=== PATIENT | male | born 1930 | race Caucasian/White ===

== ENCOUNTER → 2016-10-09 | Day surgery (SDC) | payer BC ==
[2016-09-26 10:36] VITALS: Ht 177.8 cm; Wt 86.4 kg
[~2016-10-09] VITALS: Ht 177.8 cm; Wt 86.4 kg
[~2016-10-09] MED LIST: 500ML BSS 0.3ML EPI 1:1000PF IRRIG ONE; ACETAMINOPHEN 325 MG TAB PO PRN; ALBUAER2 INH; AMVISC PLUS 0.8ML SYRINGE INT OCU ONE; ASPI-435 PO; ATROPINE SULFATE 0.1 MG/ML 5ML SYR IV PRN; ATV/1 PO; BSS FLUSH ONE; CHOL100010 PO; ENDOCOAT 0.85ML SYRINGE INT OCU ONE; EpHEDrine SULFATE INJ 50 MG/ML AMP IV PRN; EpINEphrine INJ 1MG/ML AMP 1 MG/ML AMP ONE; FLUO0.05 TOP; FLUO5OIL OT; GUAI1TAB55 PO; HYDR-4956 EXT; IPRA0.037 NAE; LACTATED RINGER'S 1000ML 500 ML IV SCH; LIDOCAINE 4% OP SOLN DROP CHARGE ONE; LIDOCAINE 4% OP SOLN DROP CHARGE OPR SCH; LIDOCAINE HCL 1% MPF 2 ML VIAL ONE; MIDAZOLAM HCL 1 MG/ML 2ML VIAL ONE; MIX: 4ML BSS 1ML EPI 1:1000 PF TOP ONE; MOXIFLOXACIN OPH SOLN PER DROP CHARGE ONE; MULT-188 PO; POVIDONE-IODINE OP SOLN 30 ML BTL ONE; PROPARACAINE 0.5% OP SOLN PER DROP CHARGE OPR SCH; TIOTCAP INH; TOBRAMYCIN/DEXAMETHASONE OPH OINT PER APPLN CHARGE ONE; TRAZ50TA35 PO
[2016-10-09] MEDS: PHENYLEPHRINE HCL 2.5% OP SOLN PER DROP CHARGE OPR SCH ×3 (07:30→07:40)
[2016-10-09] MEDS: TROPICAMIDE 1% OP SOLN PER DROP CHARGE OPR SCH ×3 (07:31→07:41)
[2016-10-09] MEDS: CYCLOPENTOLATE HCL 1% OP SOLN PER DROP CHARGE OPR SCH ×3 (07:32→07:42)
[2016-10-09] MEDS: MOXIFLOXACIN OPH SOLN PER DROP CHARGE OPR SCH ×3 (07:33→07:43)
--- NOTE | 2016-10-09 07:34 | History & Physical Bridge - SC ---
H&P Re-Evaluation Bridge Note: I have examined the patient, reviewed the History & Physical and in the interval since the performance of the History & Physical I have noted the following changes of clinical significance: No changes noted. Right eye cataract surgery.
--- NOTE | 2016-10-09 08:53 | [facility] Post Operative Brief Note ---
Immediate Operative Summary Operative Date October 09, 2016. Pre-Operative Diagnosis Right eye cataract Post-Operative Diagnosis Same as preop Procedure(s) Performed Right Cataract Phacoemulsification With Intraocular Lens Implant Surgeon Dr. Sainz Contact Centre Supervisor Surgeon(s) None Estimated Blood Loss 0 mL Findings right cataract Specimens None Complication(s) None Disposition
--- NOTE | 2016-10-09 08:54 | [facility] Operative Report ---
Operative Report Date of Service October 09, 2016. Operative Report Phaco with monofocal IOL DATE OF OPERATION: 10/09/16 PREOPERATIVE DIAGNOSIS: Senile nuclear cataract, right eye POSTOPERATIVE DIAGNOSIS: Senile nuclear cataract, right eye PROCEDURE PERFORMED: Phacoemulsification with intraocular lens implantation, right eye SURGEON: Dr. Yair Sainz ANESTHESIA: Topical with 1% intracameral lidocaine and monitored anesthesia care COMPLICATIONS: None DESCRIPTION OF PROCEDURE: After positively identifying the patient both verbally and by wristband in the preoperative area, the right eye was marked as the operative eye. The patient was then brought back to the operating room by the anesthesia and nursing staff where they were given a drop of Lidocaine and betadine into the operative eye. They were then sterilely prepped and draped in the standard fashion typical for ophthalmic surgery. Steri-strips were placed along the upper eyelids to keep the lashes back, and a lid speculum was placed into the operative eye. At this point, a documented time out was performed with members of the ophthalmology, nursing, and anesthesia staffs all agreeing upon the correct patient, correct location for surgery, correct procedure, and correct type and power of intraocular lens to be implanted. The microscope was then swung into position. First, a paracentesis wound was made using a sideport blade. Then, in sequence, 1% preservative-free lidocaine followed by Endocoat viscoelastic was injected into the anterior chamber. Next , the main incision was made with a keratome blade in triplanar fashion. A sharp cystotome was introduced into the eye and used to create a tear in the anterior capsule, which was directed into a continuous curvilinear capsulorrhexis using Utrata forceps. Hydrodissection was then performed with BSS on a flat-tip cannula. Next, the phacoemulsification handpiece was introduced into the eye and used to remove the nucleus in a [id number] fashion. This was done without complication and then the irrigation-aspiration handpiece was introduced into the eye and used to remove all remaining cortical and epinuclear material. Amvisc was then injected into the anterior chamber as well as into the capsular bag and using the lens injector system, an MX60 18.5 D lens, serial number [id number], and expiration date 03/2019 was injected into the capsular bag and rotated into the correct position. Next, the irrigation- aspiration handpiece was used to remove all remaining Amvisc. BSS was used to hydrate the main wound, and then BSS was injected into the paracentesis site to reach physiologic pressure and then the main wound was checked and found to be watertight. The patient was given drops of Vigamox and Tobradex ointment into the operative eye, and then the surrounding area was cleaned and dried. A clear plastic shield was placed over the eye and the patient was then sat up and taken from the operating room by the anesthesia staff having tolerated the procedure well and suffering no complications. DISPOSITION: The patient was returned to the recovery room in stable condition. I attest to the content of the Intraoperative Record and any orders documented therein. Any exceptions are noted below.
--- NOTE | 2016-10-09 08:55 | Discharge Instructions-SurgCtr ---
Discharge Instructions Date of Service October 09, 2016. Visit Reason for Visit: Cataract Right Eye Discharge Discharge Diagnosis / Problem: right cataract Discharge Goals Goal(s): Decrease discomfort, Improve function Activity Recommendations Activity Limitations: as noted below Anesthesia . Post Anesthesia Instructions: If you have had General Anesthesia or IV Sedation: * Do not drive today. * Resume driving when surgeon permits. * Do not make important decisions or sign legal documents today. * Call surgeon for: 1. Temperature elevations greater than 101 degrees F. 2. Uncontrollable pain. 3. Excessive bleeding. 4. Persistent nausea and vomiting. 5. Medication intolerance (nausea, vomiting or rash). * For nausea and vomiting use only clear liquids such as: tea, soda, bouillon until nausea subsides, then gradually increase diet as tolerated. * If you have any concerns or questions, call your surgeon's office. If physician is unavailable and it is an emergency, call 911 or go to the nearest emergency room. . Instructions / Follow-Up Instructions / Follow-Up ACTIVITY RECOMMENDATIONS: * Light activities. * You may walk outside, read, watch television. * You may notice redness on the white part of the eye and some blurry vision - this is normal. MEDICATIONS: Resume previous medications unless instructed otherwise by your surgeon. Start all eye drops at 11 am today: * Eye drops (today): Prednisone - one drop in operative eye every 2 hours while awake Ciprofloxacin - one drop in operative eye every 2 hours while awake Ilevro - one drop in operative eye daily SPECIAL CARE INSTRUCTIONS: * Tape plastic shield over eye to sleep at night. Call your doctor at with any concerns or problems. FOLLOW UP VISIT: Follow-up with Dr Sainz at [place] office as scheduled. Diet Recommendations Home Diet: no limitations Procedures Procedures Performed: Right Cataract Phacoemulsification With Intraocular Lens Implant Pending Studies Studies pending at discharge: no Medical Emergencies . Who to Call and When: Medical Emergencies: If at any time you feel your situation is an emergency, please call 911 immediately. . Non-Emergent Contact Non-Emergency issues call your: Surgeon . . "Provider Documentation" section prepared by Yair Sainz. .
[2016-10-09 08:57] VITALS: TEMP 36.9
[2016-10-09 09:16] VITALS: BP 127/75; PULSE 77; O2SAT 94
--- NOTE | 2016-10-09 09:22 | Anesthesia Progress Nt - [facility] ---
Anesthesia Post Op Note Date & Time October 09, 2016 at 09:22 Vital Signs Pain Intensity: 0 Vital Signs Past 12 Hours Date Time Temp Pulse Resp B/P Pulse Ox O2 Delivery O2 Flow Rate FiO2 10/09/16 09:16 77 127/75 94 Room Air 10/09/16 08:57 36.9 82 24 105/68 97 Room Air 10/09/16 07:21 36.7 82 20 116/68 95 Room Air Notes Mental Status: alert / awake / arousable, participated in evaluation Pt Amnestic to Procedure: Yes Nausea / Vomiting: adequately controlled Pain: adequately controlled Airway Patency, RR, SpO2: stable & adequate BP & HR: stable & adequate Hydration State: stable & adequate Anesthetic Complications: no major complications apparent
== END | disposition home or self-care (01) ==
LOC: X.SURG 06:41
PROVIDERS: ATTEND Ophthalmology
DX: H25.11 Age-related nuclear cataract, right eye (principal); J44.9 Chronic obstructive pulmonary disease, unspecified; F32.9 Major depressive disorder, single episode, unspecified; H91.90 Unspecified hearing loss, unspecified ear

== ENCOUNTER 2020-05-12 14:27 | Inpatient (IN) ==
--- NOTE | 2020-05-12 18:15 | Emergency Department Note ---
Impression & Plan SOB (shortness of breath), Productive cough, Pneumonitis ED Provider Note INFORMANT: [Patient] ED PROVIDER(S): Jsor Jones MD CHIEF COMPLAINT: Shortness of breath PLAN: Disposition: Admitted Condition: [Good] MEDICAL DECISION MAKING: Patient presented complaining of shortness of breath and cough. X-ray imaging reveals a pneumonitis. His blood work shows a mild leukocytosis. Coags were unremarkable. Chemistry panel did show some mild dehydration. His BNP was borderline. Troponin and LFTs were negative. The patient was given Rocephin and doxycycline after cultures. Covid testing was negative. ECG did not show any ischemia. I discussed further management in the hospital. The patient had a consultation placed with the [facility] service. The patient was valuated in the ER for further management Triage Nursing notes reviewed and agree them. Vital Signs: reviewed and remarkable for [no significant abnormalities] Differential diagnosis: Reactive airway disease, pneumonia, pneumothorax, COPD, CHF, infections, cardiac ischemia, pulmonary embolism, musculoskeletal, gastrointestinal, as well as other pathologies. Diagnostics interpreted by me: ECG: Twelve-lead ECG reveals A. fib at 80 bpm with competing junctional pacer. PVCs noted. No ST elevation or depression. Cardiac Monitoring: Cardiac monitoring ordered by me: The patient was placed on continuous cardiac monitoring and observed. It revealed atrial fibrillation at 80 beats per minute without ectopy or evidence of dysrhythmia. Imaging studies: Chest x-ray reveals findings concerning for pneumonitis Consultation(s): [facility], Dr. Palomo HPI: The patient is a 89 year old male who presents to the Emergency Room with complaints of shortness of breath. This started a few weeks ago and is worsening. The patient also notes the following associated symptoms, productive cough of sputum. The patient has found now relieving factors. Current pain is rated as 0/10. Patient states he has no appetite or energy. He contacted his primary office and was directed to the ER for further evaluation and possible admission. pt denies LOC, headache, fevers, chills, diaphoresis, visual changes, neck pain, chest pain, nausea, vomiting, abdominal pain, back pain, melena, hematochezia, urinary symptoms, numbness, focal weakness, lymphadenopathy, rash, or other complaints. ROS: See above HPI for pertinent positives & negatives. A total of [10] systems reviewed and were otherwise negative. PAST MEDICAL HISTORY:[See Below] , COPD PAST SURGICAL HISTORY:[See Below], rectal surgery FAMILY HISTORY:[See Below] SOCIAL HISTORY:[See Below], lives alone HOME MEDICATIONS:[See Below] ALLERGIES:[See Below] VITALS:[See Below] PHYSICAL EXAMINATION: GENERAL: Awake, alert, gaunt-appearing, in no distress HENT: Normocephalic, atraumatic. Oropharynx unremarkable. EYES: Normal conjunctiva. Sclera non-icteric. NECK: Inspection normal. Non-tender. Supple. No nuchal rigidity. FROM. No masses. RESPIRATORY: Scattered rhonchi otherwise clear to auscultation. No wheezes. No rales. Wet sounding cough present. Increased respiratory effort. CARDIAC: Normal rate. Irregular rhythm. No murmurs. No rubs. Extremities warm and well perfused. Pulses equal. No JVD. GI: Soft, non-distended. No tenderness to palpation. No rebound or guarding. No masses. RECTAL: Deferred. MUSCULOSKELETAL: Atraumatic but generalized atrophy. Chest examination reveals no tenderness. The back is symmetrical on inspection without obvious abnormality. There is no CVA tenderness to palpation. No joint edema. LOWER EXTREMITIES: Calves are equal size bilaterally and non-tender. No edema. No discoloration. NEURO: Normal sensorium. No sensory or motor deficits noted. SKIN: No rash or jaundice noted. Josr Jones MD Past Med/Surg History Social History Smoking Status: Former smoker Feels Safe at Home: Yes Allergies Allergies Allergy/AdvReac Type Severity Reaction Status Date / Time No Known Allergies Allergy Verified 05/05/20 15:02 Home Meds Home Medications Medication Instructions Recorded Confirmed cholecalciferol (vitamin D3) 50 2,000 units PO DAILY tab 11/30/19 05/12/20 mcg (2,000 unit) tablet lorazepam 1 mg tablet 1 mg PO BID PRN tab 11/30/19 05/12/20 betamethasone, augmented 1 applic TOPICAL 3XWK PRN 05/05/20 05/12/20 vitamin A-vitamin C-vit E-min 1 tab PO QAM 05/05/20 05/12/20 [Ocuvite] Results & Data (ED) Vital Signs Vital Signs - 24 hr 05/12/20 14:35 05/12/20 17:01 05/12/20 18:15 Temperature 36.3 C L Temperature Source Temporal Artery Scan Pulse Rate 105 H 88 80 Pulse Rate [Apical] Pulse Rate from SpO2 Sensor Pulse Rhythm Irregular Pulse Rhythm [Apical] Pulse Strength [Apical] Respiratory Rate 18 30 H 20 Respiratory Effort / Characteristics Non-Labored Respiratory Depth Normal Respiratory Pattern Blood Pressure 135/75 128/83 Blood Pressure [Left Arm] Blood Pressure Mean 95 96 Blood Pressure Mean [Left Arm] Blood Pressure Position [Left Arm] Pulse Oximetry 100 100 Oxygen Delivery Method Room Air Nasal Cannula Oxygen Flow Rate 2 Sepsis Recent Fever Within 48 Hours No Sepsis New/Unexplained Change in Mental Status No Sepsis Action Taken by Nursing No Action Required 05/12/20 18:29 05/12/20 19:01 05/12/20 19:31 Temperature Temperature Source Pulse Rate 80 88 Pulse Rate [Apical] 70 Pulse Rate from SpO2 Sensor 76 Pulse Rhythm Pulse Rhythm [Apical] Irregular Pulse Strength [Apical] Normal Respiratory Rate 23 17 16 Respiratory Effort / Characteristics Non-Labored Spontaneous Respiratory Depth Normal Respiratory Pattern Grunting Blood Pressure 103/55 L 127/86 Blood Pressure [Left Arm] 136/74 Blood Pressure Mean 77 96 Blood Pressure Mean [Left Arm] 94 Blood Pressure Position [Left Arm] Lying Pulse Oximetry 100 97 94 Oxygen Delivery Method Nasal Cannula Nasal Cannula Nasal Cannula Oxygen Flow Rate 2 2 2 Sepsis Recent Fever Within 48 Hours Sepsis New/Unexplained Change in Mental Status Sepsis Action Taken by Nursing 05/12/20 20:00 05/12/20 20:31 05/12/20 21:00 Temperature Temperature Source Pulse Rate 81 81 78 Pulse Rate [Apical] Pulse Rate from SpO2 Sensor 82 78 Pulse Rhythm Pulse Rhythm [Apical] Pulse Strength [Apical] Respiratory Rate 21 18 20 Respiratory Effort / Characteristics Respiratory Depth Respiratory Pattern Blood Pressure 124/71 137/71 131/76 Blood Pressure [Left Arm] Blood Pressure Mean 74 100 93 Blood Pressure Mean [Left Arm] Blood Pressure Position [Left Arm] Pulse Oximetry 100 100 100 Oxygen Delivery Method Nasal Cannula Nasal Cannula Nasal Cannula Oxygen Flow Rate 2 2 2 Sepsis Recent Fever Within 48 Hours Sepsis New/Unexplained Change in Mental Status Sepsis Action Taken by Nursing 05/12/20 21:30 05/12/20 22:00 05/12/20 22:30 Temperature Temperature Source Pulse Rate 79 63 85 Pulse Rate [Apical] Pulse Rate from SpO2 Sensor 74 82 Pulse Rhythm Pulse Rhythm [Apical] Pulse Strength [Apical] Respiratory Rate 21 21 20 Respiratory Effort / Characteristics Respiratory Depth Respiratory Pattern Blood Pressure 106/61 109/61 130/61 Blood Pressure [Left Arm] Blood Pressure Mean 82 83 82 Blood Pressure Mean [Left Arm] Blood Pressure Position [Left Arm] Pulse Oximetry 100 100 100 Oxygen Delivery Method Nasal Cannula Nasal Cannula Nasal Cannula Oxygen Flow Rate 2 2 2 Sepsis Recent Fever Within 48 Hours Sepsis New/Unexplained Change in Mental Status Sepsis Action Taken by Nursing 05/12/20 23:00 05/12/20 23:30 Temperature Temperature Source Pulse Rate 81 80 Pulse Rate [Apical] Pulse Rate from SpO2 Sensor Pulse Rhythm Pulse Rhythm [Apical] Pulse Strength [Apical] Respiratory Rate 20 23 Respiratory Effort / Characteristics Respiratory Depth Respiratory Pattern Blood Pressure 131/61 119/66 Blood Pressure [Left Arm] Blood Pressure Mean 70 81 Blood Pressure Mean [Left Arm] Blood Pressure Position [Left Arm] Pulse Oximetry 100 Oxygen Delivery Method Nasal Cannula Nasal Cannula Oxygen Flow Rate 2 2 Sepsis Recent Fever Within 48 Hours Sepsis New/Unexplained Change in Mental Status Sepsis Action Taken by Nursing Laboratory Data Result diagrams: 05/12/20 17:52 05/12/20 17:52 Lab Results 05/12/20 05/12/20 05/12/20 Range/Units 17:19 17:19 17:52 WBC 11.32 H (4.8-10.8) K/uL RBC 4.52 L (4.7-6.1) M/uL Hgb 15.2 (14.0-18.0) g/dL Hct 47.1 (42-52) % MCV 104.2 H (80-100) fL MCH 33.6 (25-34) pg MCHC 32.3 (32-36) g/dL RDW Std Deviation 61.3 H (36.4-46.3) fL RDW Coeff of Jai 16.3 H (11.5-14.5) % Plt Count 283 (130-400) K/uL MPV 12.4 H (7.4-10.4) fL Immature Gran % (Auto) 0.2 % Neut % (Auto) 83.0 % Lymph % (Auto) 5.5 % [place] % (Auto) 10.2 % Eos % (Auto) 1.0 % Baso % (Auto) 0.1 % Neut # (Auto) 9.41 H (1.4-6.5) K/uL Lymph # (Auto) 0.62 L (1.2-3.4) K/uL [place] # (Auto) 1.15 H (0.11-0.59) K/uL Eos # (Auto) 0.11 (0-0.5) K/uL Baso # (Auto) 0.01 (0-0.2) K/uL Immature Gran # (Auto) 0.02 (0.00-0.02) K/uL PT (9.0-12.0) Seconds INR (0.9-1.1) APTT (21.0-31.0) Seconds PTT Ratio Sodium (136-145) mmol/L Potassium (3.5-5.1) mmol/L Chloride (98-107) mmol/L Carbon Dioxide (21-32) mmol/L Anion Gap (3-11) BUN (7-18) mg/dl Creatinine (0.6-1.4) mg/dl Est Cr Clr Drug Dosing Est GFR ( Amer) Est GFR (Non-Af Amer) BUN/Creatinine Ratio (10-20) Glucose (70-99) mg/dl Calcium (8.5-10.1) mg/dl Magnesium (1.8-2.4) mg/dl Total Bilirubin (0.2-1) mg/dl AST (15-37) U/L ALT (12-78) U/L Alkaline Phosphatase (45-117) U/L Troponin I (0-0.045) ng/ml NT-Pro-B Natriuret Pep (0-1800) pg/ml Total Protein (6.4-8.2) gm/dl Albumin (3.4-5.0) gm/dl Globulin (2.5-4.0) gm/dl Albumin/Globulin Ratio (0.9-2) COVID-19 [facility] SARS-[facility]-2, RNA, NAAT NEGATIVE (NEGATIVE) 05/12/20 05/12/20 Range/Units 17:52 17:52 WBC (4.8-10.8) K/uL RBC (4.7-6.1) M/uL Hgb (14.0-18.0) g/dL Hct (42-52) % MCV (80-100) fL MCH (25-34) pg MCHC (32-36) g/dL RDW Std Deviation (36.4-46.3) fL RDW Coeff of Jai (11.5-14.5) % Plt Count (130-400) K/uL MPV (7.4-10.4) fL Immature Gran % (Auto) % Neut % (Auto) % Lymph % (Auto) % [place] % (Auto) % Eos % (Auto) % Baso % (Auto) % Neut # (Auto) (1.4-6.5) K/uL Lymph # (Auto) (1.2-3.4) K/uL [place] # (Auto) (0.11-0.59) K/uL Eos # (Auto) (0-0.5) K/uL Baso # (Auto) (0-0.2) K/uL Immature Gran # (Auto) (0.00-0.02) K/uL PT 11.9 (9.0-12.0) Seconds INR 1.1 (0.9-1.1) APTT 28.2 (21.0-31.0) Seconds PTT Ratio 1.0 Sodium 138 (136-145) mmol/L Potassium 4.4 (3.5-5.1) mmol/L Chloride 100 (98-107) mmol/L Carbon Dioxide 38 H (21-32) mmol/L Anion Gap 0 L (3-11) BUN 21 H (7-18) mg/dl Creatinine 0.84 (0.6-1.4) mg/dl Est Cr Clr Drug Dosing Not Reportable Est GFR ( Amer) 90.6 Est GFR (Non-Af Amer) 78.2 BUN/Creatinine Ratio 25.1 H (10-20) Glucose 101 H (70-99) mg/dl Calcium 8.9 (8.5-10.1) mg/dl Magnesium 2.3 (1.8-2.4) mg/dl Total Bilirubin 0.7 (0.2-1) mg/dl AST 15 (15-37) U/L ALT 16 (12-78) U/L Alkaline Phosphatase 59 (45-117) U/L Troponin I < 0.015 (0-0.045) ng/ml NT-Pro-B Natriuret Pep 1970 H (0-1800) pg/ml Total Protein 7.7 (6.4-8.2) gm/dl Albumin 3.2 L (3.4-5.0) gm/dl Globulin 4.5 H (2.5-4.0) gm/dl Albumin/Globulin Ratio 0.7 L (0.9-2) COVID-19 Eval Order SARS-CoV-2, RNA, NAAT (NEGATIVE) Administered Medications Discontinued Medications Ceftriaxone Sodium (Rocephin) 2,000 mg in 70 mls @ 140 mls/hr IV NOW STA Stop: 05/12/20 20:33 Last Infusion: 05/12/20 21:10 Dose: 0 mls/hr Documented by: [id number] Admin: 05/12/20 20:40 Dose: 140 mls/hr Documented by: [id number] Doxycycline Hyclate 100 mg/ (Dextrose) 110 mls @ 50 mls/hr IV NOW STA Stop: 05/12/20 22:15 Last Infusion: 05/12/20 23:31 Dose: 0 mls/hr Documented by: [id number] Admin: 05/12/20 21:16 Dose: 50 mls/hr Documented by: [id number] Discharge Plan Visit Data Chief Complaint: Shortness of Breath/Dyspnea Stated Complaint: SOB, SENT FOR POSSIBLE PNX ED Provider: Josr Jones Discharge Problem: SOB (shortness of breath), Productive cough, Pneumonitis Patient Disposition: Admitted As Inpatient Discharge Instructions Interventions: ED Discharge Assessment Last Done: 05/12/20 23:33 Forms Stand Alone Forms: [facility] Prescriptions Prescriptions: No Action cholecalciferol (vitamin D3) 50 mcg (2,000 unit) tablet 2,000 units PO DAILY RF: 0 lorazepam 1 mg tablet 1 mg PO BID PRN (Reason: Anxiety) RF: 0 betamethasone, augmented 0.05 % lotion 1 applic topical 3XWK PRN (Reason: Ear Itchiness) RF: 0 Ocuvite Tablet 1 tab PO QAM RF: 0 Referrals Referrals: Jacek Freeman DO [Primary Care Provider] -
[2020-05-12 18:27] LABS: Basophils # (auto) 0.01 K/uL (0-0.2); Basophils % (auto) 0.1 %; Eosinophils # (auto) 0.11 K/uL (0-0.5); Hematocrit (blood only) 47.1 % (42-52); Hemoglobin 15.2 g/dL (14.0-18.0); Immature Granulocytes # (auto) 0.02 K/uL (0.00-0.02); Immature Granulocytes % (auto) 0.2 %; Lymphocytes # (auto) 0.62 K/uL (1.2-3.4); Lymphocytes % (auto) 5.5 %; Mean Corpuscular Hemoglobin 33.6 pg (25-34); Mean Corpuscular Hgb Conc 32.3 g/dL (32-36); Mean Corpuscular Volume 104.2 fL (80-100); Mean Platelet Volume 12.4 fL (7.4-10.4); Monocytes # (auto) 1.15 K/uL (0.11-0.59); Monocytes % (auto) 10.2 %; Neutrophils # (auto) 9.41 K/uL (1.4-6.5); Platelet Count 283 K/uL (130-400); RDW Coefficient of Variation 16.3 % (11.5-14.5); RDW Standard Deviation 61.3 fL (36.4-46.3); Red Blood Count 4.52 M/uL (4.7-6.1); White Blood Count 11.32 K/uL (4.8-10.8)
--- NOTE | 2020-05-12 18:27 | XRay Report ---
XR chest 1V portable HISTORY: Dyspnea COMPARISON: Chest 11/19/2015. FINDINGS: The heart is normal in size. The lungs are hyperexpanded with apical predominant emphysemat ous changes. Mild interstitial thickening within the mid to lower lung zones could be due to vascular crowding. A low-grade superimposed pneumonitis could also have a similar appearance. No evidence for pulmonary edema. Suspect a trace left pleural effusion. No pneumothorax. IMPRESSION: 1. Emphysema. 2. Trace left pleural effusion. 3. Mild interstitial thickening within the mid to lower lung zones could be due to vascular crowding from the emphysema. A low-grade pneumonitis could also have a similar appearance. ACT 112: Negative or not required by law. Electronically signed by: Efra Thompson M.D. 05/12/2020 6:26 PM
[2020-05-12 18:44] LABS: INR 1.1 (0.9-1.1); Partial Thromboplastin Time 28.2 Seconds (21.0-31.0); Prothrombin Time 11.9 Seconds (9.0-12.0)
[2020-05-12 18:55] LABS: Alanine Aminotransferase 16 U/L (12-78); Albumin Level 3.2 gm/dl (3.4-5.0); Anion Gap 0 (3-11); Aspartate Aminotransferase 15 U/L (15-37); BUN Creatinine Ratio 25.1 (10-20); Blood Urea Nitrogen 21 mg/dl (7-18); Calcium 8.9 mg/dl (8.5-10.1); Carbon Dioxide 38 mmol/L (21-32); Chloride 100 mmol/L (98-107); Est GFR (African American) 90.6; Est GFR (Non-African American) 78.2; Glucose 101 mg/dl (70-99); Magnesium 2.3 mg/dl (1.8-2.4); Potassium 4.4 mmol/L (3.5-5.1); Sodium 138 mmol/L (136-145)
[2020-05-12 19:00] LABS: Albumin Globulin Ratio 0.7 (0.9-2); Alkaline Phosphatase 59 U/L (45-117); Bilirubin,Total 0.7 mg/dl (0.2-1); Globulin 4.5 gm/dl (2.5-4.0); NT Pro B Type Natriuretic Pept 1970 pg/ml (0-1800); Total Protein 7.7 gm/dl (6.4-8.2); Troponin I < 0.015 ng/ml (0-0.045)
[2020-05-12] MEDS ORDERED: DOXYCYCLINE HYCLATE 100 MG in DEXTROSE 5% 100 ML IV STA (20:04)
[2020-05-12] MEDS ORDERED: cefTRIAXone SODIUM 2,000 MG/70 ML BAG IV STA (20:04)
[2020-05-13] MEDS ORDERED: ACETAMINOPHEN 325 MG TAB PO PRN (00:09)
[2020-05-13] MEDS ORDERED: NITROGLYCERIN SL 0.4 MG/TAB TAB SL PRN (00:09)
[2020-05-13] MEDS ORDERED: IPRATROPIUM BROMIDE NEB SOLN 0.02% 2.5 ML VIAL INH PRN (00:09)
[2020-05-13] MEDS ORDERED: ONDANSETRON INJ 2 MG/ML 2 ML VIAL IV PRN (00:09)
[2020-05-13] MEDS ORDERED: XOPENEX/ATROVENT 1.25mg/0.5MG NEB COMBO NEB PRN (00:09)
[2020-05-13] MEDS ORDERED: LEVALBUTEROL 1.25MG/0.5ML NEB INH PRN (00:09)
[2020-05-13] MEDS ORDERED: POLYETHYLENE (MIRALAX) 17 GM PACK PO PRN (00:09)
[2020-05-13] MEDS ORDERED: LORazepam 1 MG TAB PO PRN (00:14)
[2020-05-13] MEDS ORDERED: methylPREDNISolone 40 MG in SYRINGE 0 ML IV ONE (00:15)
[2020-05-13] MEDS ORDERED: BETAMETHASONE DIP AUG (DIPROLENE) 0.05% CR 15 GM TUBE EXT PRN (00:29)
[2020-05-13] MEDS: SODIUM CHLORIDE 0.9% 1000ML 1,000 ML IV SCH ×2 (00:50→12:56)
--- NOTE | 2020-05-13 01:22 | History and Physical Report ---
DATE OF ADMISSION: 05/12/2020 CHIEF COMPLAINT: Shortness of breath. HISTORY OF PRESENT ILLNESS: This is an 89-year-old male with past medical history significant for COPD, pulmonary cachexia due to COPD, chronic rhinitis, pulmonary nodules, history of CVA, nonrheumatic aortic valve stenosis, sensorineural hearing loss bilateral, history of vertigo, moderate depression. The patient lives alone, uses walker at home. Uses 2 liters oxygen most of the time. He says he still can drive and he gets a lady helping him 3 times a week. His son lives in [facility]. He has cough with his COPD, but last few days it is getting worse and is getting short of breath. He denies any fever or chills. His appetite is not that great. Because of his ongoing shortness of breath and cough, he came to the ER. Denies any fever, chills. Denies any headache, no blurred visions. Hard of hearing. He has runny nose. Denies any sore throat. No loss of sense of smell or taste. No nausea, no abdominal pain. He says he is constipated. Denies any blood in stool or black stools. Normal bladder movements. Currently, resting comfortably and saturating okay on 2 liters. ALLERGIES: No known drug allergies. PAST MEDICAL HISTORY: As mentioned above. PAST SURGICAL HISTORY: Lung biopsy to chest wall, cataract surgery, repair of the left hip fracture, sacroiliac joint injection. MEDICATIONS: The patient is on betamethasone augmented topical p.r.n., vitamin D 2000 units p.o. daily, Ativan 1 mg p.o. b.i.d. p.r.n., vitamin A, Ocuvite 1 tablet p.o. daily. FAMILY HISTORY: Significant for brother had lung cancer; father had heart disorder; brother had stroke. SOCIAL HISTORY: , lives alone currently. Former smoker, quit in 1983. Alcohol, drinks 2 times a month. Number of drinks when he drinks is 1 or 2. No drug use. REVIEW OF SYSTEMS: As per HPI. Rest of the review of systems negative. PHYSICAL EXAMINATION: GENERAL: The patient is old and frail, not in acute distress. VITAL SIGNS: Temperature 36.3, pulse 63, respiratory rate 21, blood pressure 109/61, oxygen 100% on 2 liters. HEENT: Pupils equal, round, and reactive to light. Oral mucosa moist. NECK: No neck masses seen. CARDIOVASCULAR: S1, S2 heard. Regular rate and rhythm, no murmur, no gallop. RESPIRATORY SYSTEM: Normal AP diameter. No accessory muscle use. Mild bilateral rhonchi heard. No wheezing. ABDOMEN: Soft, bowel sounds were nontender. No distention. CENTRAL NERVOUS SYSTEM: Cranial nerves II-XII grossly intact. Nonfocal. EXTREMITIES: No edema, no erythema. LABORATORY DATA: WBC 11.3, hemoglobin 15.2, hematocrit 47.1, platelets 283. PT 11.9, INR 1.1, APTT 28.2. Sodium 138, potassium 4.4, chloride 100, bicarbonate 38, BUN 21, creatinine 0.8, serum glucose 101, calcium 8.9, magnesium 2.3. Total bilirubin 0.7, AST 15, ALT 16, alkaline phosphatase 59. Troponin I less than 0.015. BNP 1970. COVID-19 test negative. IMAGING DATA: Chest x-ray, trace left pleural effusion, mild interstitial thickening with mid to lower lung zones. Could be due to vascular crowding from the emphysema. A low-grade pneumonitis could also have similar appearance. EKG: Shows AFib with PVCs at rate of 80, no acute ST changes. ASSESSMENT AND PLAN: This is an 89-year-old male who presents with ongoing shortness of breath and history of chronic obstructive pulmonary disease. Comes in with shortness of breath and found to have pneumonia. 1. Pneumonia on chest x-ray, mostly community acquired pneumonia, history of chronic obstructive pulmonary disease. He has had Rocephin and doxycycline, which he will continue. Will follow the response. 2. Mild chronic obstructive pulmonary disease exacerbation. The patient had rhonchi on exam. the patient seems to not take any meds at home for copd. We will place him on Combivent Respimat and also nebs p.r.n. We will give a dose of IV Solu-Medrol. We will continue with short course of prednisone p.o. in the a.m. and monitor. 3. Atrial fibrillation, seems to be new onset, mostly secondary to ongoing respiratory illness. We will get an echocardiogram. We will follow the repeat EKG in the a.m. and consult cardiology for further recommendations. 4. History of cerebrovascular accident. The patient is not on any aspirin or any other anticoagulation. 5. History of aortic valve stenosis. The echo in July 2019 showed EF of around 50% to 54%. Aortic valve is moderately calcified. Possible moderate aortic stenosis. The patient is getting gentle fluids. We will monitor for any volume overload. 6. Deep venous thrombosis prophylaxis, sequential compression devices, heparin subQ. DISPOSITION: Monitor in the med tele. Level 1 full code as per my discussion with the patient. MTDD
[2020-05-13] MEDS: PATIENT'S HEIGHT AND/OR WEIGHT NEEDED SCH ×2 (05:58→05:59)
[2020-05-13] MEDS: ALBUTEROL HFA 8 GM INHALER INH SCH ×4 (07:37→20:40)
[2020-05-13] MEDS: IPRATROPIUM BROMIDE HFA INHALER INH SCH ×4 (07:37→20:40)
[2020-05-13] MEDS: predniSONE 20 MG TAB PO SCH (08:25)
[2020-05-13] MEDS: DOXYCYCLINE HYCLATE 100 MG in DEXTROSE 5% 100 ML IV SCH ×2 (08:25→20:08)
[2020-05-13] MEDS: HEPARIN SOD 5,000 UNIT/0.5 ML VIAL SQ SCH ×2 (08:25→20:10)
[2020-05-13] MEDS: CHOLECALCIFEROL 1,000 UNITS 25 MCG TAB PO SCH (08:25)
[2020-05-13] MEDS: CEROVITE ADV FORMULA TAB PO SCH (08:25)
--- NOTE | 2020-05-13 08:28 | Cardiology Consultation ---
Date of Consultation May 13, 2020 Assessment & Plan (1) SOB (shortness of breath): (2) Productive cough: (3) Pneumonitis: (4) COPD (chronic obstructive pulmonary disease): (5) History of CVA (cerebrovascular accident): (6) Calcific aortic stenosis: The patient is clinically stable. Although he does have aortic stenosis his shortness of breath is most likely pulmonary and due to his community- acquired pneumonia, but we should be cognizant that he may require a little diuretic otherwise agree with current treatment. History of Present Illness Attending Physician: Shawn Trevizo MD History of Present Illness The patient is an elderly 89-year-old who lives by himself with help. He has a previous history as outlined below. He was admitted with a community-acquired pneumonia. He does have a history of calcific aortic valve disease. I reviewed his echocardiogram this admission and I believe that the aortic stenosis is severe. The patient earlier this month had an ER visit after mechanical fall. He had follow-up with his primary care physician who noted the patient to have increased shortness of breath and a cough. He was referred back to the emergency department where he was admitted. He is alert and sitting in a chair. He appears to be comfortable. No complaints of chest pain. Although one of his EKGs suggest that he may have atrial fibrillation, there is a lot of artifact and I believe he may actually have sinus mechanism with PACs. He is currently in a sinus rhythm on the telemetry. Past medical history: 1.Chronic obstructive lung disease/emphysema, severe with nocturnal oxygen supplementation. 2.Past history of TIA x3. 3.Hypertension. 4.Calcific aortic valve disease borderline severe Allergies Allergy/AdvReac Type Severity Reaction Status Date / Time No Known Allergies Allergy Verified 05/05/20 15:02 Home Medications Medication Instructions Recorded Confirmed Type cholecalciferol (vitamin D3) 50 2,000 units PO DAILY tab 11/30/19 05/12/20 History mcg (2,000 unit) tablet lorazepam 1 mg tablet 1 mg PO BID PRN tab 11/30/19 05/12/20 History betamethasone, augmented 1 applic TOPICAL [id number] PRN 05/05/20 05/12/20 History vitamin A-vitamin C-vit E-min 1 tab PO QAM 05/05/20 05/12/20 History [Ocuvite] Patient History Social History Smoking Status: Former smoker Hx Alcohol Use: No Hx Substance Use: No Preferred Language: Ivorian Communication Ability: Effective Heel Room Supervisor Required: No Beliefs That Will Affect Care: None marital status: / Current Living Situation: Alone Feels Safe at Home: Yes Safety Concerns: Feels Safe At This Time Assistive Devices: Walker Review of Systems Review of Systems: Unobtainable due to cognitive status Physical Exam Physical Exam: General: no acute distress and stated age Head: normocephalic, no masses, lesions, tenderness or abnormalities Eyes: conjunctiva are pink and non-injected, sclera clear Neck: supple, no adenopathy, no bruits, normal jugular venous pulse, no hepatojugular reflux Chest: normal shape and normal respiratory effort Lungs: clear to auscultation and percussion Cardiac Exam: - regular rate & rhythm, no murmurs gallops or rubs - normal S1, normal S2 Pulses: 2(+) throughout Abdomen: abdomen soft, non-tender, no abnormal masses and no hepatosplenomegaly Musculoskeletal: no gait disturbance, no joint inflammation, no deforming arthritis Extremities: no edema and no cyanosis Neuro: grossly normal exam Results & Data ([facility]) Vital Signs (Past 12 Hours) Vital Signs Temp Pulse Pulse Resp BP BP Pulse Ox 05/13/20 07:45 36.4 C L 84 18 99/61 L 97 05/13/20 07:44 75 05/13/20 07:38 57 L 18 95 05/13/20 04:59 84 05/13/20 02:54 36.6 C 75 20 93/62 L 94 05/13/20 01:58 36.7 C 84 20 121/72 93 05/12/20 23:30 80 23 119/66 05/12/20 23:00 81 20 131/61 100 05/12/20 22:30 85 20 130/61 100 05/12/20 22:00 63 21 109/61 100 05/12/20 21:30 79 21 106/61 100 05/12/20 21:00 78 20 131/76 100 05/12/20 20:31 81 18 137/71 100 Laboratory Results Laboratory Results - last 24 hr 05/12/20 05/12/20 05/12/20 17:19 17:19 17:52 WBC 11.32 H RBC 4.52 L Hgb 15.2 Hct 47.1 MCV 104.2 H MCH 33.6 MCHC 32.3 RDW Std Deviation 61.3 H RDW Coeff of Jai 16.3 H Plt Count 283 MPV 12.4 H Immature Gran % (Auto) 0.2 Neut % (Auto) 83.0 Lymph % (Auto) 5.5 [place] % (Auto) 10.2 Eos % (Auto) 1.0 Baso % (Auto) 0.1 Neut # (Auto) 9.41 H Lymph # (Auto) 0.62 L [place] # (Auto) 1.15 H Eos # (Auto) 0.11 Baso # (Auto) 0.01 Immature Gran # (Auto) 0.02 PT INR APTT PTT Ratio Sodium Potassium Chloride Carbon Dioxide Anion Gap BUN Creatinine Est Cr Clr Drug Dosing Est GFR ( Amer) Est GFR (Non-Af Amer) BUN/Creatinine Ratio Glucose Calcium Magnesium Total Bilirubin AST ALT Alkaline Phosphatase Troponin I NT-Pro-B Natriuret Pep Total Protein Albumin Globulin Albumin/Globulin Ratio Urine Color Urine Appearance Urine pH Ur Specific [place] Urine Protein Urine Glucose (UA) Urine Ketones Urine Blood Urine Nitrite Urine Bilirubin Urine Urobilinogen Ur Leukocyte Esterase Urine WBC (Auto) Urine RBC (Auto) U Hyaline Cast (Auto) U Epithel Cells (Auto) Urine Bacteria (Auto) COVID-19 Eval Order Covid19 [facility]Now [facility] SARS-CoV-2, RNA, NAAT NEGATIVE 05/12/20 05/12/20 05/13/20 17:52 17:52 08:39 WBC RBC Hgb Hct MCV MCH MCHC RDW Std Deviation RDW Coeff of Jai Plt Count MPV Immature Gran % (Auto) Neut % (Auto) Lymph % (Auto) [place] % (Auto) Eos % (Auto) Baso % (Auto) Neut # (Auto) Lymph # (Auto) [place] # (Auto) Eos # (Auto) Baso # (Auto) Immature Gran # (Auto) PT 11.9 INR 1.1 APTT 28.2 PTT Ratio 1.0 Sodium 138 Potassium 4.4 Chloride 100 Carbon Dioxide 38 H Anion Gap 0 L BUN 21 H Creatinine 0.84 Est Cr Clr Drug Dosing Not Reportable Est GFR ( Amer) 90.6 Est GFR (Non-Af Amer) 78.2 BUN/Creatinine Ratio 25.1 H Glucose 101 H Calcium 8.9 Magnesium 2.3 Total Bilirubin 0.7 AST 15 ALT 16 Alkaline Phosphatase 59 Troponin I < 0.015 NT-Pro-B Natriuret Pep 1970 H Total Protein 7.7 Albumin 3.2 L Globulin 4.5 H Albumin/Globulin Ratio 0.7 L Urine Color Dark Yellow Urine Appearance Clear Urine pH 5.0 Ur Specific [place] 1.030 Urine Protein 1+ H Urine Glucose (UA) Negative Urine Ketones Trace H Urine Blood Negative Urine Nitrite Negative Urine Bilirubin Negative Urine Urobilinogen Negative Ur Leukocyte Esterase Trace H Urine WBC (Auto) 1-5 Urine RBC (Auto) 5-10 H U Hyaline Cast (Auto) 5-10 H U Epithel Cells (Auto) 10-20 H Urine Bacteria (Auto) Negative COVID-19 Eval Order SARS-CoV-2, RNA, NAAT Diagnostic Findings Echocardiogram July 2019: Interpretation Summary The examination is adequate to evaluate the referral indication. The LV wall thickness is normal. The left ventricular wall motion is normal. The qualitative LV ejection fraction is 50-54% (normal). The left atrium is moderately enlarged. The aortic valve is moderately calcified. Image and Doppler assessment of aortic stenosis severity is discordant. Aortic valve imaging suggests severe aortic stenosis not confirmed by Doppler examination which suggests moderate stenosis. Trivial aortic insufficiency. Intermediate IVC size and collapsability. Right atrial pressure estimated at 8 mmHg. Significant tricuspid regurgitation is absent. The spectral Doppler signal is inadequate to calculate right ventricular and pulmnary artery systolic pressure.. Normal pulmonary pressures are suggested by 2-D echo findings. Compared to the prior study dated 10/29/2018, the aortic valve velocities are stable without significant interval change. Medications Administered Current Inpatient Medications Acetaminophen (Acetaminophen 325 Mg Tab) 650 mg PO Q4H PRN PRN Reason: Pain or Fever Stop: 06/12/20 00:08 Albuterol (Albuterol Hfa 8 Gm Inhaler) 1 puffs INH QIDR [facility] Stop: 06/12/20 06:59 Last Admin: 05/13/20 07:37 Dose: 1 puffs Documented by: Betamethasone Dipropion Augmented (Betamethasone Dip Aug (Diprolene) 0.05% Cr 15 Gm Tube) 1 appln EXT MoWeFr@0900 PRN PRN Reason: Ear Itchiness Stop: 06/12/20 00:28 Heparin Sodium (Porcine) (Heparin Sod 5,000 Unit/0.5 Ml Vial) 5,000 units SQ Q12 [facility] Stop: 06/12/20 08:59 Last Admin: 05/13/20 08:25 Dose: 5,000 units Documented by: Ceftriaxone Sodium 1,000 mg/ (Dextrose) 60 mls @ 100 mls/hr IV Q24H [facility]; Protocol Stop: 05/18/20 20:35 Doxycycline Hyclate 100 mg/ (Dextrose) 110 mls @ 50 mls/hr IV Q12H [facility] Stop: 05/20/20 08:59 Last Infusion: 05/13/20 10:39 Dose: Infused Documented by: Sodium Chloride (Nss 1000ml) 1,000 mls @ 75 mls/hr IV .[id number] [facility] Stop: 06/12/20 00:08 Last Admin: 05/13/20 00:50 Dose: 75 mls/hr Documented by: Ipratropium [place] (Ipratropium [place] Hfa Inhaler) 1 puffs INH QIDR [facility] Stop: 06/12/20 06:59 Last Admin: 05/13/20 07:37 Dose: 1 puffs Documented by: Ipratropium [place] (Ipratropium [place] Neb Soln 0.02% 2.5 Ml Vial) 0.5 mg INH Q4H PRN PRN Reason: Shortness Of Breath Or Wheezing Stop: 06/12/20 00:08 Levalbuterol HCl (Levalbuterol 1.25mg/0.5ml Neb) 1.25 mg INH Q4H PRN PRN Reason: Shortness Of Breath Or Wheezing Stop: 06/12/20 00:08 Lorazepam (Lorazepam 1 Mg Tab) 1 mg PO BID PRN PRN Reason: Anxiety Stop: 06/12/20 00:13 Multivitamins/Minerals (Cerovite Adv Formula Tab) 1 tab PO QAM [facility] Stop: 06/12/20 08:59 Last Admin: 05/13/20 08:25 Dose: 1 tab Documented by: Nitroglycerin (Nitroglycerin Sl 0.4 Mg/Tab Tab) 0.4 mg SL UD PRN PRN Reason: Chest Pain Stop: 06/12/20 00:08 Ondansetron HCl (Ondansetron Inj 2 Mg/Ml 2 Ml Vial) 4 mg IV Q6H PRN PRN Reason: Nausea Stop: 06/12/20 00:08 Polyethylene Glycol (Polyethylene (Miralax) 17 Gm Pack) 17 gm PO DAILY PRN PRN Reason: Constipation Stop: 06/12/20 00:08 Prednisone (Prednisone 20 Mg Tab) 40 mg PO DAILY [facility] Stop: 06/12/20 08:59 Last Admin: 05/13/20 08:25 Dose: 40 mg Documented by: Vitamin D (Cholecalciferol 1,000 Units 25 Mcg Tab) 2,000 units PO DAILY [facility] Stop: 06/12/20 08:59 Last Admin: 05/13/20 08:25 Dose: 2,000 units Documented by:
[2020-05-13] MEDS ORDERED: IPRATROPIUM BROMIDE/ALBUTEROL respimat INH INH SCH (09:00)
[2020-05-13 10:31] LABS: Appearance Urine Clear (Clear); Bacteria Urine Automated Negative (Negative); Blood Urine Negative (Negative); Color Urine Dark Yellow; Glucose Urine UA Negative (Negative); Ketones Urine Trace (Negative); Leukocyte Esterase Urine Trace (Negative); Nitrite Urine Negative (Negative); Protein Urine 1+ (Negative); Urobilinogen Urine Negative (Negative)
[2020-05-13 10:55] LABS: Bilirubin Urine Negative (Negative); Ictotest Urine Negative (Negative)
--- NOTE | 2020-05-13 13:31 | Hospitalist Progress Note ---
Date of Service May 13, 2020 Assessment & Plan (1) COPD exacerbation: Has history of COPD on 2 L of home oxygen has been getting increasing shortness of breath for the last few days Has infective COPD exacerbation We will continue with nebulized bronchodilators and intravenous Solu-Medrol Oxygen as needed Condition seems to be improving (2) Community acquired pneumonia: Chest x-ray showed bilateral lower lobe infiltration, pneumonitis/pneu monia Has been started on intravenous ceftriaxone and doxycycline Blood cultures have been sent (3) Calcific aortic stenosis: Did not have any chest pain but has shortness of breath with minimal exertion Appreciate cardiology input and recommendation May need a small dose of Lasix but otherwise no change in his cardiac medication Echo of the heart showed: Severe calcific aortic stenosis, LV is normal in size with EF of 50 to 55%, RV systolic function is normal, both atria are normal (4) History of CVA (cerebrovascular accident): Weak and lethargic but does not have any sequela (5) HTN (hypertension): Seems to be in the lower side of normal (6) Atrial fibrillation: EKG showed atrial fibrillation Likely secondary to COPD with hypoxemia and may be complicated by pneumonia Earlier EKG did not show any atrial fibrillation DVT prophylaxis Subcu heparin CODE STATUS Full Admission and Anticipated Discharge Date Admission Date: May 12, 2020 Subjective 05/13/2020 The patient was seen and examined in medical telemetry unit He was admitted with a shortness of breath with history of COPD Has been feeling a little better since admission Denies any fever and/or chills, any abdominal pain,nausea and/or vomiting, no chest pain and/or palpitation Review of Systems Review of Systems: All systems reviewed and are unremarkable except as noted below Respiratory: + cough and + dyspnea (Minimal dyspnea at rest); no wheezing Cardiovascular: no chest pain, no palpitations and no edema Physical Exam Physical Exam: Lying in bed comfortably Constitutional: well developed, well nourished, + ill appearing and average body habitus; no acute distress Eyes: PERRL, conjunctivae normal, anicteric sclerae ENMT: external ear and nose normal, oropharynx normal Neck: trachea midline, no thyromegaly Respiratory: no respiratory distress Auscultation: + diminished lung sounds and + wheezes (Minimal wheezing); no crackles Cardiovascular: Rate/Rhythm: + irregularly irregular Heart Sounds: + murmur (2/6 ESM over aortic area) Extremities: no edema Gastrointestinal (Abdomen): Inspection/Auscultation: normal bowel sounds; abdomen not distended Percussion/Palpation: abdomen soft; abdomen nontender Musculoskeletal: No acute arthritis in any joint Neurologic: Alert, awake and oriented x3. Really weak but no focal sensory and motor deficit appreciated Psychiatric: A+Ox3, euthymic affect Lymphatic: no cervical or axillary lymphadenopathy Results & Data Results & Data ([facility]) Vital Signs (Past 12 Hours) Vital Signs Temp Pulse Pulse Resp BP Pulse Ox 05/13/20 11:43 62 20 94 05/13/20 11:33 36.8 C 88 18 102/62 99 05/13/20 07:45 36.4 C L 84 18 99/61 L 97 05/13/20 07:44 75 05/13/20 07:38 57 L 18 95 05/13/20 04:59 84 05/13/20 02:54 36.6 C 75 20 93/62 L 94 05/13/20 01:58 36.7 C 84 20 121/72 93 Laboratory Results Short CBC 05/12/20 Range/Units 17:52 WBC 11.32 H (4.8-10.8) K/uL Hgb 15.2 (14.0-18.0) g/dL Hct 47.1 (42-52) % Plt Count 283 (130-400) K/uL BMP 05/12/20 17:52 Sodium 138 Potassium 4.4 Chloride 100 Carbon Dioxide 38 H BUN 21 H Creatinine 0.84 Glucose 101 H Calcium 8.9 Cardiac Enzymes 05/12/20 Range/Units 17:52 Troponin I < 0.015 (0-0.045) ng/ml Liver Function 05/12/20 Range/Units 17:52 Total Bilirubin 0.7 (0.2-1) mg/dl AST 15 (15-37) U/L ALT 16 (12-78) U/L Alkaline Phosphatase 59 (45-117) U/L Albumin 3.2 L (3.4-5.0) gm/dl Urine 05/13/20 Range/Units 08:39 Urine Color Dark Yellow Urine Appearance Clear (Clear) Urine pH 5.0 (4.5-7.5) Ur Specific [place] 1.030 (1.000-1.030) Urine Protein 1+ H (Negative) Urine Glucose (UA) Negative (Negative) Medications Administered Current Inpatient Medications Acetaminophen (Acetaminophen 325 Mg Tab) 650 mg PO Q4H PRN PRN Reason: Pain or Fever Stop: 06/12/20 00:08 Albuterol (Albuterol Hfa 8 Gm Inhaler) 1 puffs INH QIDR [facility] Stop: 06/12/20 06:59 Last Admin: 05/13/20 11:39 Dose: 1 puffs Documented by: Betamethasone Dipropion Augmented (Betamethasone Dip Aug (Diprolene) 0.05% Cr 15 Gm Tube) 1 appln EXT MoWeFr@0900 PRN PRN Reason: Ear Itchiness Stop: 06/12/20 00:28 Heparin Sodium (Porcine) (Heparin Sod 5,000 Unit/0.5 Ml Vial) 5,000 units SQ Q12 [facility] Stop: 06/12/20 08:59 Last Admin: 05/13/20 08:25 Dose: 5,000 units Documented by: Ceftriaxone Sodium 1,000 mg/ (Dextrose) 60 mls @ 100 mls/hr IV Q24H [facility]; Protocol Stop: 05/18/20 20:35 Doxycycline Hyclate 100 mg/ (Dextrose) 110 mls @ 50 mls/hr IV Q12H [facility] Stop: 05/20/20 08:59 Last Infusion: 05/13/20 10:39 Dose: Infused Documented by: Sodium Chloride (Nss 1000ml) 1,000 mls @ 75 mls/hr IV .[id number] [facility] Stop: 06/12/20 00:08 Last Admin: 05/13/20 12:56 Dose: 75 mls/hr Documented by: Ipratropium [place] (Ipratropium [place] Hfa Inhaler) 1 puffs INH QIDR [facility] Stop: 06/12/20 06:59 Last Admin: 05/13/20 11:40 Dose: 1 puffs Documented by: Ipratropium [place] (Ipratropium [place] Neb Soln 0.02% 2.5 Ml Vial) 0.5 mg INH Q4H PRN PRN Reason: Shortness Of Breath Or Wheezing Stop: 06/12/20 00:08 Levalbuterol HCl (Levalbuterol 1.25mg/0.5ml Neb) 1.25 mg INH Q4H PRN PRN Reason: Shortness Of Breath Or Wheezing Stop: 06/12/20 00:08 Lorazepam (Lorazepam 1 Mg Tab) 1 mg PO BID PRN PRN Reason: Anxiety Stop: 06/12/20 00:13 Multivitamins/Minerals (Cerovite Adv Formula Tab) 1 tab PO QAM [facility] Stop: 06/12/20 08:59 Last Admin: 05/13/20 08:25 Dose: 1 tab Documented by: Nitroglycerin (Nitroglycerin Sl 0.4 Mg/Tab Tab) 0.4 mg SL UD PRN PRN Reason: Chest Pain Stop: 06/12/20 00:08 Ondansetron HCl (Ondansetron Inj 2 Mg/Ml 2 Ml Vial) 4 mg IV Q6H PRN PRN Reason: Nausea Stop: 06/12/20 00:08 Polyethylene Glycol (Polyethylene (Miralax) 17 Gm Pack) 17 gm PO DAILY PRN PRN Reason: Constipation Stop: 06/12/20 00:08 Prednisone (Prednisone 20 Mg Tab) 40 mg PO DAILY [facility] Stop: 06/12/20 08:59 Last Admin: 05/13/20 08:25 Dose: 40 mg Documented by: Vitamin D (Cholecalciferol 1,000 Units 25 Mcg Tab) 2,000 units PO DAILY [facility] Stop: 06/12/20 08:59 Last Admin: 05/13/20 08:25 Dose: 2,000 units Documented by:
[2020-05-13] MEDS: cefTRIAXone SODIUM 1,000 MG in DEXTROSE 5% 50 ML IV SCH (19:30)
[2020-05-14 06:20] LABS: Hematocrit (blood only) 39.1 % (42-52); Hemoglobin 12.2 g/dL (14.0-18.0); Immature Granulocytes # (auto) 0.02 K/uL (0.00-0.02); Immature Granulocytes % (auto) 0.2 %; Lymphocytes % (auto) 7.3 %; Mean Corpuscular Hemoglobin 32.6 pg (25-34); Mean Corpuscular Hgb Conc 31.2 g/dL (32-36); Mean Corpuscular Volume 104.5 fL (80-100); Mean Platelet Volume 11.5 fL (7.4-10.4); Monocytes # (auto) 0.89 K/uL (0.11-0.59); Monocytes % (auto) 9.2 %; Neutrophils # (auto) 8.04 K/uL (1.4-6.5); Neutrophils % (auto) 83.3 %; Platelet Count 226 K/uL (130-400); RDW Coefficient of Variation 16.2 % (11.5-14.5); RDW Standard Deviation 61.6 fL (36.4-46.3); Red Blood Count 3.74 M/uL (4.7-6.1); White Blood Count 9.65 K/uL (4.8-10.8)
[2020-05-14 06:51] LABS: BUN Creatinine Ratio 32.7 (10-20); Est GFR (African American) 95.5; Est GFR (Non-African American) 82.4; Magnesium 2.3 mg/dl (1.8-2.4); Phosphorus 3.3 mg/dl (2.5-4.9); Potassium 4.3 mmol/L (3.5-5.1)
[2020-05-14] MEDS: IPRATROPIUM BROMIDE HFA INHALER INH SCH ×4 (07:43→19:52)
[2020-05-14] MEDS: ALBUTEROL HFA 8 GM INHALER INH SCH ×4 (07:43→19:52)
[2020-05-14] MEDS: HEPARIN SOD 5,000 UNIT/0.5 ML VIAL SQ SCH ×2 (08:39→20:55)
[2020-05-14] MEDS: CEROVITE ADV FORMULA TAB PO SCH (08:39)
[2020-05-14] MEDS: predniSONE 20 MG TAB PO SCH (08:39)
[2020-05-14] MEDS: DOXYCYCLINE HYCLATE 100 MG in DEXTROSE 5% 100 ML IV SCH ×2 (08:39→20:20)
[2020-05-14] MEDS: CHOLECALCIFEROL 1,000 UNITS 25 MCG TAB PO SCH (08:39)
--- NOTE | 2020-05-14 09:31 | Cardiology Progress Note ---
Date of Service May 14, 2020 Assessment & Plan (1) SOB (shortness of breath): (2) Productive cough: (3) Pneumonitis: (4) COPD (chronic obstructive pulmonary disease): (5) History of CVA (cerebrovascular accident): (6) Calcific aortic stenosis: The patient has not had much output in the past 24 hours. He does have some rhonchi and rales and with severe aortic stenosis I will give him a little bit of diuresis today with 20 mg of IV Lasix. Admission and Anticipated Discharge Date Admission Date: May 12, 2020 Subjective Patient is sitting in a chair and appears to be comfortable. Review of Systems Review of Systems: All systems reviewed & are unremarkable except as noted in HPI & below Nothing additional to add Physical Exam Physical Exam: General: no acute distress and stated age Head: normocephalic, no masses, lesions, tenderness or abnormalities Eyes: conjunctiva are pink and non-injected, sclera clear Neck: supple, no adenopathy, no bruits, normal jugular venous pulse, no hepatojugular reflux Chest: normal shape and normal respiratory effort Lungs: Diffuse rhonchi Cardiac Exam: - regular rate & rhythm, systolic murmur- normal S1, normal S2 Pulses: 2(+) throughout Abdomen: abdomen soft, non-tender, no abnormal masses and no hepatosplenomegaly Musculoskeletal: no gait disturbance, no joint inflammation, no deforming arthritis Extremities: no edema and no cyanosis Neuro: grossly normal exam Results & Data ([facility]) Vital Signs (Past 12 Hours) Vital Signs Temp Pulse Pulse Resp BP Pulse Ox 05/14/20 08:18 36.6 C 95 H 18 90/53 L 99 05/14/20 07:45 105 H 20 92 05/14/20 04:20 84 05/14/20 03:22 36.6 C 74 18 92/51 L 99 05/13/20 22:25 36.6 C 71 18 116/72 96 Laboratory Results Laboratory Results - last 24 hr 05/13/20 05/14/20 05/14/20 08:39 05:58 05:58 WBC 9.65 RBC 3.74 L Hgb 12.2 L D Hct 39.1 L MCV 104.5 H MCH 32.6 MCHC 31.2 L RDW Std Deviation 61.6 H RDW Coeff of Jai 16.2 H Plt Count 226 MPV 11.5 H Immature Gran % (Auto) 0.2 Neut % (Auto) 83.3 Lymph % (Auto) 7.3 [place] % (Auto) 9.2 Eos % (Auto) 0.0 Baso % (Auto) 0.0 Neut # (Auto) 8.04 H Lymph # (Auto) 0.70 L [place] # (Auto) 0.89 H Eos # (Auto) 0.00 Baso # (Auto) 0.00 Immature Gran # (Auto) 0.02 Sodium 140 Potassium 4.3 Chloride 104 Carbon Dioxide 37 H Anion Gap -2.0 L BUN 24 H Creatinine 0.74 Est Cr Clr Drug Dosing 55.0 Est GFR ( Amer) 95.5 Est GFR (Non-Af Amer) 82.4 BUN/Creatinine Ratio 32.7 H Glucose 103 H Calcium 8.0 L Phosphorus 3.3 Magnesium 2.3 Urine Color Dark Yellow Urine Appearance Clear Urine pH 5.0 Ur Specific [place] 1.030 Urine Protein 1+ H Urine Glucose (UA) Negative Urine Ketones Trace H Urine Blood Negative Urine Nitrite Negative Urine Bilirubin Negative Urine Urobilinogen Negative Ur Leukocyte Esterase Trace H Urine WBC (Auto) 1-5 Urine RBC (Auto) 5-10 H U Hyaline Cast (Auto) 5-10 H U Epithel Cells (Auto) 10-20 H Urine Bacteria (Auto) Negative Medications Administered Current Inpatient Medications Acetaminophen (Acetaminophen 325 Mg Tab) 650 mg PO Q4H PRN PRN Reason: Pain or Fever Stop: 06/12/20 00:08 Albuterol (Albuterol Hfa 8 Gm Inhaler) 1 puffs INH QIDR [facility] Stop: 06/12/20 06:59 Last Admin: 05/14/20 07:43 Dose: 1 puffs Documented by: Betamethasone Dipropion Augmented (Betamethasone Dip Aug (Diprolene) 0.05% Cr 15 Gm Tube) 1 appln EXT MoWeFr@0900 PRN PRN Reason: Ear Itchiness Stop: 06/12/20 00:28 Heparin Sodium (Porcine) (Heparin Sod 5,000 Unit/0.5 Ml Vial) 5,000 units SQ Q12 [facility] Stop: 06/12/20 08:59 Last Admin: 05/14/20 08:39 Dose: 5,000 units Documented by: Ceftriaxone Sodium 1,000 mg/ (Dextrose) 60 mls @ 100 mls/hr IV Q24H [facility]; Protocol Stop: 05/18/20 20:35 Last Infusion: 05/13/20 20:07 Dose: Infused Documented by: Doxycycline Hyclate 100 mg/ (Dextrose) 110 mls @ 50 mls/hr IV Q12H [facility] Stop: 05/20/20 08:59 Last Admin: 05/14/20 08:39 Dose: 50 mls/hr Documented by: Furosemide 20 mg/ Syringe 2 mls @ 4 mls/min IV ONE ONE Stop: 05/14/20 09:26 Ipratropium [place] (Ipratropium [place] Hfa Inhaler) 1 puffs INH QIDR [facility] Stop: 06/12/20 06:59 Last Admin: 05/14/20 07:43 Dose: 1 puffs Documented by: Ipratropium [place] (Ipratropium [place] Neb Soln 0.02% 2.5 Ml Vial) 0.5 mg INH Q4H PRN PRN Reason: Shortness Of Breath Or Wheezing Stop: 06/12/20 00:08 Levalbuterol HCl (Levalbuterol 1.25mg/0.5ml Neb) 1.25 mg INH Q4H PRN PRN Reason: Shortness Of Breath Or Wheezing Stop: 06/12/20 00:08 Lorazepam (Lorazepam 1 Mg Tab) 1 mg PO BID PRN PRN Reason: Anxiety Stop: 06/12/20 00:13 Multivitamins/Minerals (Cerovite Adv Formula Tab) 1 tab PO QAM [facility] Stop: 06/12/20 08:59 Last Admin: 05/14/20 08:39 Dose: 1 tab Documented by: Nitroglycerin (Nitroglycerin Sl 0.4 Mg/Tab Tab) 0.4 mg SL UD PRN PRN Reason: Chest Pain Stop: 06/12/20 00:08 Ondansetron HCl (Ondansetron Inj 2 Mg/Ml 2 Ml Vial) 4 mg IV Q6H PRN PRN Reason: Nausea Stop: 06/12/20 00:08 Polyethylene Glycol (Polyethylene (Miralax) 17 Gm Pack) 17 gm PO DAILY PRN PRN Reason: Constipation Stop: 06/12/20 00:08 Prednisone (Prednisone 20 Mg Tab) 40 mg PO DAILY [facility] Stop: 06/12/20 08:59 Last Admin: 05/14/20 08:39 Dose: 40 mg Documented by: Vitamin D (Cholecalciferol 1,000 Units 25 Mcg Tab) 2,000 units PO DAILY [facility] Stop: 06/12/20 08:59 Last Admin: 05/14/20 08:39 Dose: 2,000 units Documented by:
[2020-05-14] MEDS ORDERED: FUROSEMIDE 20 MG in SYRINGE 0 ML IV ONE (10:00)
--- NOTE | 2020-05-14 10:03 | Hospitalist Progress Note ---
Date of Service May 14, 2020 Assessment & Plan (1) COPD exacerbation: Has history of COPD on 2 L of home oxygen has been getting increasing shortness of breath for the last few days Has infective COPD exacerbation We will continue with nebulized bronchodilators and intravenous Solu-Medrol Oxygen as needed Condition seems to be improving We will provide incentive spirometer (2) Community acquired pneumonia: Chest x-ray showed bilateral lower lobe infiltration, pneumonitis/pneumonia Has been started on intravenous ceftriaxone and doxycycline Blood cultures have been sent-negative so far We will continue current antibiotics (3) Calcific aortic stenosis: Did not have any chest pain but has shortness of breath with minimal exertion Appreciate cardiology input and recommendation May need a small dose of Lasix but otherwise no change in his cardiac medication Echo of the heart showed: Severe calcific aortic stenosis, LV is normal in size with EF of 50 to 55%, RV systolic function is normal, both atria are normal No acute symptoms (4) History of CVA (cerebrovascular accident): Weak and lethargic but does not have any sequela (5) HTN (hypertension): Seems to be in the lower side of normal (6) Atrial fibrillation: EKG showed atrial fibrillation Likely secondary to COPD with hypoxemia and may be complicated by pneumonia Earlier EKG did not show any atrial fibrillation DVT prophylaxis Subcu heparin CODE STATUS Full We will get PT and OT evaluation Discussed with the son and the [id number] and will keep in touch with them Admission and Anticipated Discharge Date Admission Date: May 12, 2020 Subjective 05/13/2020 The patient was seen and examined in medical telemetry unit He was admitted with a shortness of breath with history of COPD Has been feeling a little better since admission Denies any fever and/or chills, any abdominal pain,nausea and/or vomiting, no chest pain and/or palpitation 05/14/2020 The patient was seen and examined in medical telemetry unit He has been feeling better but remains weak and lethargic Complains today of cough with productive phlegm but no hematemesis Denies any fever and/or chills Review of Systems Review of Systems: All systems reviewed and are unremarkable except as noted below Respiratory: + cough and + dyspnea (Minimal dyspnea at rest); no wheezing Physical Exam Physical Exam: Sitting on a chair without any acute distress Constitutional: well developed, well nourished, + ill appearing and average body habitus; no acute distress Eyes: PERRL, conjunctivae normal, anicteric sclerae ENMT: external ear and nose normal, oropharynx normal Neck: trachea midline, no thyromegaly Respiratory: no respiratory distress Auscultation: + diminished lung sounds, + crackles (Minimal bibasilar crackles) and + wheezes (Minimal wheezing) Cardiovascular: Rate/Rhythm: + irregularly irregular Heart Sounds: + murmur (2/6 ESM over aortic area) Extremities: no edema Gastrointestinal (Abdomen): Inspection/Auscultation: normal bowel sounds; abdomen not distended Percussion/Palpation: abdomen soft; abdomen nontender Musculoskeletal: No acute arthritis in any joint Psychiatric: A+Ox3, euthymic affect Lymphatic: no cervical or axillary lymphadenopathy Results & Data Results & Data ([facility]) Vital Signs (Past 12 Hours) Vital Signs Temp Pulse Pulse Resp BP Pulse Ox 05/14/20 08:18 36.6 C 95 H 18 90/53 L 99 05/14/20 07:45 105 H 20 92 05/14/20 04:20 84 05/14/20 03:22 36.6 C 74 18 92/51 L 99 05/13/20 22:25 36.6 C 71 18 116/72 96 Laboratory Results Short CBC 05/14/20 Range/Units 05:58 WBC 9.65 (4.8-10.8) K/uL Hgb 12.2 L D (14.0-18.0) g/dL Hct 39.1 L (42-52) % Plt Count 226 (130-400) K/uL BMP 05/14/20 05:58 Sodium 140 Potassium 4.3 Chloride 104 Carbon Dioxide 37 H BUN 24 H Creatinine 0.74 Glucose 103 H Calcium 8.0 L Urine 05/13/20 Range/Units 08:39 Urine Color Dark Yellow Urine Appearance Clear (Clear) Urine pH 5.0 (4.5-7.5) Ur Specific [place] 1.030 (1.000-1.030) Urine Protein 1+ H (Negative) Urine Glucose (UA) Negative (Negative) Medications Administered Current Inpatient Medications Acetaminophen (Acetaminophen 325 Mg Tab) 650 mg PO Q4H PRN PRN Reason: Pain or Fever Stop: 06/12/20 00:08 Albuterol (Albuterol Hfa 8 Gm Inhaler) 1 puffs INH QIDR [facility] Stop: 06/12/20 06:59 Last Admin: 05/14/20 07:43 Dose: 1 puffs Documented by: Betamethasone Dipropion Augmented (Betamethasone Dip Aug (Diprolene) 0.05% Cr 15 Gm Tube) 1 appln EXT MoWeFr@0900 PRN PRN Reason: Ear Itchiness Stop: 06/12/20 00:28 Heparin Sodium (Porcine) (Heparin Sod 5,000 Unit/0.5 Ml Vial) 5,000 units SQ Q12 [facility] Stop: 06/12/20 08:59 Last Admin: 05/14/20 08:39 Dose: 5,000 units Documented by: Ceftriaxone Sodium 1,000 mg/ (Dextrose) 60 mls @ 100 mls/hr IV Q24H [facility]; Protocol Stop: 05/18/20 20:35 Last Infusion: 05/13/20 20:07 Dose: Infused Documented by: Doxycycline Hyclate 100 mg/ (Dextrose) 110 mls @ 50 mls/hr IV Q12H [facility] Stop: 05/20/20 08:59 Last Admin: 05/14/20 08:39 Dose: 50 mls/hr Documented by: Ipratropium [place] (Ipratropium [place] Hfa Inhaler) 1 puffs INH QIDR [facility] Stop: 06/12/20 06:59 Last Admin: 05/14/20 07:43 Dose: 1 puffs Documented by: Ipratropium [place] (Ipratropium [place] Neb Soln 0.02% 2.5 Ml Vial) 0.5 mg INH Q4H PRN PRN Reason: Shortness Of Breath Or Wheezing Stop: 06/12/20 00:08 Levalbuterol HCl (Levalbuterol 1.25mg/0.5ml Neb) 1.25 mg INH Q4H PRN PRN Reason: Shortness Of Breath Or Wheezing Stop: 06/12/20 00:08 Lorazepam (Lorazepam 1 Mg Tab) 1 mg PO BID PRN PRN Reason: Anxiety Stop: 06/12/20 00:13 Multivitamins/Minerals (Cerovite Adv Formula Tab) 1 tab PO QAM [facility] Stop: 06/12/20 08:59 Last Admin: 05/14/20 08:39 Dose: 1 tab Documented by: Nitroglycerin (Nitroglycerin Sl 0.4 Mg/Tab Tab) 0.4 mg SL UD PRN PRN Reason: Chest Pain Stop: 06/12/20 00:08 Ondansetron HCl (Ondansetron Inj 2 Mg/Ml 2 Ml Vial) 4 mg IV Q6H PRN PRN Reason: Nausea Stop: 06/12/20 00:08 Polyethylene Glycol (Polyethylene (Miralax) 17 Gm Pack) 17 gm PO DAILY PRN PRN Reason: Constipation Stop: 06/12/20 00:08 Prednisone (Prednisone 20 Mg Tab) 40 mg PO DAILY [facility] Stop: 06/12/20 08:59 Last Admin: 05/14/20 08:39 Dose: 40 mg Documented by: Vitamin D (Cholecalciferol 1,000 Units 25 Mcg Tab) 2,000 units PO DAILY [facility] Stop: 06/12/20 08:59 Last Admin: 05/14/20 08:39 Dose: 2,000 units Documented by:
[2020-05-14] MEDS: cefTRIAXone SODIUM 1,000 MG in DEXTROSE 5% 50 ML IV SCH (19:41)
--- NOTE | 2020-05-15 06:08 | Electrocardiogram Report ---
Test Reason : Blood Pressure : / mmHG Vent. Rate : 080 BPM Atrial Rate : 076 BPM P-R Int : 000 ms QRS Dur : 090 ms QT Int : 370 ms P-R-T Axes : 000 040 047 degrees QTc Int : 426 ms Poor data quality, interpretation may be adversely affected Sinus rhythm Premature atrial complexes Fusion complexes Low voltage QRS Abnormal ECG When compared with ECG of 05-MAY-2020 13:02, No significant change Confirmed by Billy Calderón ([id number]) on 05/15/2020 6:07:37 AM Referred By: Jacek Freeman Confirmed By:Billy Calderón
--- NOTE | 2020-05-15 06:19 | Electrocardiogram Report ---
Test Reason : Blood Pressure : / mmHG Vent. Rate : 074 BPM Atrial Rate : 074 BPM P-R Int : 160 ms QRS Dur : 098 ms QT Int : 404 ms P-R-T Axes : 000 081 -08 degrees QTc Int : 448 ms Poor data quality, interpretation may be adversely affected Sinus rhythm with Premature ventricular complexes Premature atrial complexes Abnormal QRS-T angle, consider primary T wave abnormality Abnormal ECG When compared with ECG of 12-MAY-2020 18:15, (unconfirmed) No significant change Confirmed by Billy Calderón ([id number]) on 05/15/2020 6:19:25 AM Referred By: Jacek Freeman Confirmed By:Billy Calderón
[2020-05-15 07:00] LABS: Basophils # (auto) 0.01 K/uL (0-0.2); Basophils % (auto) 0.1 %; Eosinophils # (auto) 0.01 K/uL (0-0.5); Eosinophils % (auto) 0.1 %; Hematocrit (blood only) 40.7 % (42-52); Hemoglobin 12.8 g/dL (14.0-18.0); Immature Granulocytes # (auto) 0.03 K/uL (0.00-0.02); Immature Granulocytes % (auto) 0.3 %; Lymphocytes # (auto) 0.77 K/uL (1.2-3.4); Lymphocytes % (auto) 7.9 %; Mean Corpuscular Hemoglobin 33.2 pg (25-34); Mean Corpuscular Hgb Conc 31.4 g/dL (32-36); Mean Corpuscular Volume 105.4 fL (80-100); Monocytes # (auto) 0.97 K/uL (0.11-0.59); Monocytes % (auto) 9.9 %; Neutrophils % (auto) 81.7 %; Platelet Count 235 K/uL (130-400); RDW Coefficient of Variation 16.5 % (11.5-14.5); RDW Standard Deviation 62.6 fL (36.4-46.3); Red Blood Count 3.86 M/uL (4.7-6.1); White Blood Count 9.79 K/uL (4.8-10.8)
[2020-05-15 07:28] LABS: BUN Creatinine Ratio 29.9 (10-20); Calcium 8.7 mg/dl (8.5-10.1); Creatinine Clr Calc Pharmacy 45.4 ml/min; Est GFR (African American) 84.7; Potassium 4.1 mmol/L (3.5-5.1)
[2020-05-15] MEDS: ALBUTEROL HFA 8 GM INHALER INH SCH ×4 (07:51→19:13)
[2020-05-15] MEDS: IPRATROPIUM BROMIDE HFA INHALER INH SCH ×4 (07:51→19:13)
[2020-05-15] MEDS: HEPARIN SOD 5,000 UNIT/0.5 ML VIAL SQ SCH ×2 (08:09→20:20)
[2020-05-15] MEDS: predniSONE 20 MG TAB PO SCH (08:10)
[2020-05-15] MEDS: DOXYCYCLINE HYCLATE 100 MG in DEXTROSE 5% 100 ML IV SCH ×2 (08:10→22:22)
[2020-05-15] MEDS: CEROVITE ADV FORMULA TAB PO SCH (08:10)
[2020-05-15] MEDS: CHOLECALCIFEROL 1,000 UNITS 25 MCG TAB PO SCH (08:10)
--- NOTE | 2020-05-15 10:58 | Cardiology Progress Note ---
Date of Service May 15, 2020 Assessment & Plan (1) SOB (shortness of breath): (2) Productive cough: (3) Pneumonitis: (4) COPD (chronic obstructive pulmonary disease): (5) History of CVA (cerebrovascular accident): (6) Calcific aortic stenosis: I have asked that the patient have a Aguirre catheter inserted today. His bladder scan indicated over 200 cc of residual fluid. Otherwise he is stable and seems to be improving. Admission and Anticipated Discharge Date Admission Date: May 12, 2020 Subjective The patient is clinically stable but having problems with incontinence and urgency. Review of Systems Review of Systems: Unobtainable due to cognitive status Physical Exam Physical Exam: General: no acute distress and stated age Head: normocephalic, no masses, lesions, tenderness or abnormalities Eyes: conjunctiva are pink and non-injected, sclera clear Neck: supple, no adenopathy, no bruits, normal jugular venous pulse, no hepatojugular reflux Chest: normal shape and normal respiratory effort Lungs: clear to auscultation and percussion Cardiac Exam: - regular rate & rhythm, no murmurs gallops or rubs - normal S1, normal S2 Pulses: 2(+) throughout Abdomen: abdomen soft, non-tender, no abnormal masses and no hepatosplenomegaly Musculoskeletal: no gait disturbance, no joint inflammation, no deforming arthritis Extremities: no edema and no cyanosis Neuro: grossly normal exam Results & Data ([facility]) Vital Signs (Past 12 Hours) Vital Signs Temp Pulse Pulse Pulse Resp BP BP 05/15/20 07:52 72 18 05/15/20 07:28 36.4 C L 90 20 127/66 05/15/20 07:20 79 05/15/20 04:00 36.7 C 84 20 131/77 05/14/20 23:40 75 05/14/20 23:03 36.5 C 72 18 122/75 Pulse Ox 05/15/20 07:52 93 05/15/20 07:28 95 05/15/20 07:20 05/15/20 04:00 99 05/14/20 23:40 05/14/20 23:03 100 Laboratory Results Laboratory Results - last 24 hr 05/15/20 05/15/20 05:46 05:46 WBC 9.79 RBC 3.86 L Hgb 12.8 L Hct 40.7 L MCV 105.4 H MCH 33.2 MCHC 31.4 L RDW Std Deviation 62.6 H RDW Coeff of Jai 16.5 H Plt Count 235 MPV 12.0 H Immature Gran % (Auto) 0.3 Neut % (Auto) 81.7 Lymph % (Auto) 7.9 [place] % (Auto) 9.9 Eos % (Auto) 0.1 Baso % (Auto) 0.1 Neut # (Auto) 8.00 H Lymph # (Auto) 0.77 L [place] # (Auto) 0.97 H Eos # (Auto) 0.01 Baso # (Auto) 0.01 Immature Gran # (Auto) 0.03 H Sodium 141 Potassium 4.1 Chloride 101 Carbon Dioxide 39 H Anion Gap 1.0 L BUN 28 H Creatinine 0.93 Est Cr Clr Drug Dosing 45.4 Est GFR ( Amer) 84.7 Est GFR (Non-Af Amer) 73.0 BUN/Creatinine Ratio 29.9 H Glucose 88 Calcium 8.7 Medications Administered Current Inpatient Medications Acetaminophen (Acetaminophen 325 Mg Tab) 650 mg PO Q4H PRN PRN Reason: Pain or Fever Stop: 06/12/20 00:08 Albuterol (Albuterol Hfa 8 Gm Inhaler) 1 puffs INH QIDR [facility] Stop: 06/12/20 06:59 Last Admin: 05/15/20 07:51 Dose: 1 puffs Documented by: Betamethasone Dipropion Augmented (Betamethasone Dip Aug (Diprolene) 0.05% Cr 15 Gm Tube) 1 appln EXT MoWeFr@0900 PRN PRN Reason: Ear Itchiness Stop: 06/12/20 00:28 Heparin Sodium (Porcine) (Heparin Sod 5,000 Unit/0.5 Ml Vial) 5,000 units SQ Q12 [facility] Stop: 06/12/20 08:59 Last Admin: 05/15/20 08:09 Dose: 5,000 units Documented by: Ceftriaxone Sodium 1,000 mg/ (Dextrose) 60 mls @ 100 mls/hr IV Q24H [facility]; Protocol Stop: 05/18/20 20:35 Last Infusion: 05/14/20 21:07 Dose: Infused Documented by: Doxycycline Hyclate 100 mg/ (Dextrose) 110 mls @ 50 mls/hr IV Q12H [facility] Stop: 05/20/20 08:59 Last Infusion: 05/15/20 10:22 Dose: Infused Documented by: Ipratropium [place] (Ipratropium [place] Hfa Inhaler) 1 puffs INH QIDR [facility] Stop: 06/12/20 06:59 Last Admin: 05/15/20 07:51 Dose: 1 puffs Documented by: Ipratropium [place] (Ipratropium [place] Neb Soln 0.02% 2.5 Ml Vial) 0.5 mg INH Q4H PRN PRN Reason: Shortness Of Breath Or Wheezing Stop: 06/12/20 00:08 Levalbuterol HCl (Levalbuterol 1.25mg/0.5ml Neb) 1.25 mg INH Q4H PRN PRN Reason: Shortness Of Breath Or Wheezing Stop: 06/12/20 00:08 Lorazepam (Lorazepam 1 Mg Tab) 1 mg PO BID PRN PRN Reason: Anxiety Stop: 06/12/20 00:13 Last Admin: 05/15/20 01:24 Dose: 1 mg Documented by: Multivitamins/Minerals (Cerovite Adv Formula Tab) 1 tab PO QAM [facility] Stop: 06/12/20 08:59 Last Admin: 05/15/20 08:10 Dose: 1 tab Documented by: Nitroglycerin (Nitroglycerin Sl 0.4 Mg/Tab Tab) 0.4 mg SL UD PRN PRN Reason: Chest Pain Stop: 06/12/20 00:08 Ondansetron HCl (Ondansetron Inj 2 Mg/Ml 2 Ml Vial) 4 mg IV Q6H PRN PRN Reason: Nausea Stop: 06/12/20 00:08 Polyethylene Glycol (Polyethylene (Miralax) 17 Gm Pack) 17 gm PO DAILY PRN PRN Reason: Constipation Stop: 06/12/20 00:08 Prednisone (Prednisone 20 Mg Tab) 40 mg PO DAILY [facility] Stop: 06/12/20 08:59 Last Admin: 05/15/20 08:10 Dose: 40 mg Documented by: Vitamin D (Cholecalciferol 1,000 Units 25 Mcg Tab) 2,000 units PO DAILY [facility] Stop: 06/12/20 08:59 Last Admin: 05/15/20 08:10 Dose: 2,000 units Documented by:
--- NOTE | 2020-05-15 12:47 | Hospitalist Progress Note ---
Date of Service May 15, 2020 Assessment & Plan (1) COPD exacerbation: Has history of COPD on 2 L of home oxygen has been getting increasing shortness of breath for the last few days Has infective COPD exacerbation We will continue with nebulized bronchodilators and intravenous Solu-Medrol Oxygen as needed Condition seems to be improving We will provide incentive spirometer Remains stable with gradual improvement (2) Community acquired pneumonia: Chest x-ray showed bilateral lower lobe infiltration, pneumonitis/pneumonia Has been started on intravenous ceftriaxone and doxycycline Blood cultures have been sent-negative so far We will continue current antibiotics-no fever and/or chills and white count is coming down (3) Calcific aortic stenosis: Did not have any chest pain but has shortness of breath with minimal exertion Appreciate cardiology input and recommendation May need a small dose of Lasix but otherwise no change in his cardiac medication Echo of the heart showed: Severe calcific aortic stenosis, LV is normal in size with EF of 50 to 55%, RV systolic function is normal, both atria are normal No acute symptoms (4) History of CVA (cerebrovascular accident): Weak and lethargic but does not have any sequela (5) HTN (hypertension): Seems to be in the lower side of normal (6) Atrial fibrillation: EKG showed atrial fibrillation Likely secondary to COPD with hypoxemia and may be complicated by pneumonia Earlier EKG did not show any atrial fibrillation DVT prophylaxis Subcu heparin CODE STATUS Full We will get PT and OT evaluation Discussed with the son and the [id number] and will keep in touch with them Likely for short-term rehab when accepted Admission and Anticipated Discharge Date Admission Date: May 12, 2020 Subjective 05/13/2020 The patient was seen and examined in medical telemetry unit He was admitted with a shortness of breath with history of COPD Has been feeling a little better since admission Denies any fever and/or chills, any abdominal pain,nausea and/or vomiting, no chest pain and/or palpitation 05/14/2020 The patient was seen and examined in medical telemetry unit He has been feeling better but remains weak and lethargic Complains today of cough with productive phlegm but no hematemesis Denies any fever and/or chills 05/15/2020 The patient was seen and examined in medical telemetry unit He remains weak and lethargic but otherwise stable Denies any chest pain and/or palpitation Minimal shortness of breath at rest Review of Systems Review of Systems: All systems reviewed and are unremarkable except as noted below Respiratory: + cough and + dyspnea (Minimal dyspnea at rest); no wheezing Physical Exam Physical Exam: Sitting on a chair without any acute distress Constitutional: well developed, well nourished, + ill appearing and average body habitus; no acute distress Eyes: PERRL, conjunctivae normal, anicteric sclerae ENMT: external ear and nose normal, oropharynx normal Neck: trachea midline, no thyromegaly Respiratory: no respiratory distress Auscultation: + diminished lung sounds, + crackles (Minimal bibasilar crackles) and + wheezes (Minimal wheezing) Cardiovascular: Rate/Rhythm: + irregularly irregular Heart Sounds: + murmur (2/6 ESM over aortic area) Extremities: no edema Gastrointestinal (Abdomen): Inspection/Auscultation: normal bowel sounds; abdomen not distended Percussion/Palpation: abdomen soft; abdomen nontender Musculoskeletal: No acute arthritis in any joint Neurologic: Alert and awake. Generally weak but no focal neuro deficit Psychiatric: A+Ox3, euthymic affect Lymphatic: no cervical or axillary lymphadenopathy Results & Data Results & Data ([facility]) Vital Signs (Past 12 Hours) Vital Signs Temp Pulse Pulse Pulse Resp BP BP 05/15/20 11:18 67 18 05/15/20 11:00 36.7 C 86 20 83/51 L 94/58 L 05/15/20 07:52 72 18 05/15/20 07:28 36.4 C L 90 20 127/66 05/15/20 07:20 79 05/15/20 04:00 36.7 C 84 20 131/77 Pulse Ox 05/15/20 11:18 91 05/15/20 11:00 95 05/15/20 07:52 93 05/15/20 07:28 95 05/15/20 07:20 05/15/20 04:00 99 Laboratory Results Short CBC 05/15/20 Range/Units 05:46 WBC 9.79 (4.8-10.8) K/uL Hgb 12.8 L (14.0-18.0) g/dL Hct 40.7 L (42-52) % Plt Count 235 (130-400) K/uL BMP 05/15/20 05:46 Sodium 141 Potassium 4.1 Chloride 101 Carbon Dioxide 39 H BUN 28 H Creatinine 0.93 Glucose 88 Calcium 8.7 Medications Administered Current Inpatient Medications Acetaminophen (Acetaminophen 325 Mg Tab) 650 mg PO Q4H PRN PRN Reason: Pain or Fever Stop: 06/12/20 00:08 Albuterol (Albuterol Hfa 8 Gm Inhaler) 1 puffs INH QIDR [facility] Stop: 06/12/20 06:59 Last Admin: 05/15/20 11:17 Dose: 1 puffs Documented by: Betamethasone Dipropion Augmented (Betamethasone Dip Aug (Diprolene) 0.05% Cr 15 Gm Tube) 1 appln EXT MoWeFr@0900 PRN PRN Reason: Ear Itchiness Stop: 06/12/20 00:28 Heparin Sodium (Porcine) (Heparin Sod 5,000 Unit/0.5 Ml Vial) 5,000 units SQ Q12 [facility] Stop: 06/12/20 08:59 Last Admin: 05/15/20 08:09 Dose: 5,000 units Documented by: Ceftriaxone Sodium 1,000 mg/ (Dextrose) 60 mls @ 100 mls/hr IV Q24H [facility]; Protocol Stop: 05/18/20 20:35 Last Infusion: 05/14/20 21:07 Dose: Infused Documented by: Doxycycline Hyclate 100 mg/ (Dextrose) 110 mls @ 50 mls/hr IV Q12H [facility] Stop: 05/20/20 08:59 Last Infusion: 05/15/20 10:22 Dose: Infused Documented by: Ipratropium [place] (Ipratropium [place] Hfa Inhaler) 1 puffs INH QIDR [facility] Stop: 06/12/20 06:59 Last Admin: 05/15/20 11:17 Dose: 1 puffs Documented by: Ipratropium [place] (Ipratropium [place] Neb Soln 0.02% 2.5 Ml Vial) 0.5 mg INH Q4H PRN PRN Reason: Shortness Of Breath Or Wheezing Stop: 06/12/20 00:08 Levalbuterol HCl (Levalbuterol 1.25mg/0.5ml Neb) 1.25 mg INH Q4H PRN PRN Reason: Shortness Of Breath Or Wheezing Stop: 06/12/20 00:08 Lorazepam (Lorazepam 1 Mg Tab) 1 mg PO BID PRN PRN Reason: Anxiety Stop: 06/12/20 00:13 Last Admin: 05/15/20 01:24 Dose: 1 mg Documented by: Multivitamins/Minerals (Cerovite Adv Formula Tab) 1 tab PO QAM [facility] Stop: 06/12/20 08:59 Last Admin: 05/15/20 08:10 Dose: 1 tab Documented by: Nitroglycerin (Nitroglycerin Sl 0.4 Mg/Tab Tab) 0.4 mg SL UD PRN PRN Reason: Chest Pain Stop: 06/12/20 00:08 Ondansetron HCl (Ondansetron Inj 2 Mg/Ml 2 Ml Vial) 4 mg IV Q6H PRN PRN Reason: Nausea Stop: 06/12/20 00:08 Polyethylene Glycol (Polyethylene (Miralax) 17 Gm Pack) 17 gm PO DAILY PRN PRN Reason: Constipation Stop: 06/12/20 00:08 Prednisone (Prednisone 20 Mg Tab) 40 mg PO DAILY [facility] Stop: 06/12/20 08:59 Last Admin: 05/15/20 08:10 Dose: 40 mg Documented by: Vitamin D (Cholecalciferol 1,000 Units 25 Mcg Tab) 2,000 units PO DAILY [facility] Stop: 06/12/20 08:59 Last Admin: 05/15/20 08:10 Dose: 2,000 units Documented by:
[2020-05-15] MEDS: cefTRIAXone SODIUM 1,000 MG in DEXTROSE 5% 50 ML IV SCH (20:15)
[2020-05-15] MEDS: TAMSULOSIN HCL 0.4 MG CAP PO SCH (20:19)
[2020-05-16] MEDS: ALBUTEROL HFA 8 GM INHALER INH SCH ×4 (07:32→20:19)
[2020-05-16] MEDS: IPRATROPIUM BROMIDE HFA INHALER INH SCH ×4 (07:33→20:19)
[2020-05-16] MEDS: CHOLECALCIFEROL 1,000 UNITS 25 MCG TAB PO SCH (08:08)
[2020-05-16] MEDS: CEROVITE ADV FORMULA TAB PO SCH (08:08)
[2020-05-16] MEDS: HEPARIN SOD 5,000 UNIT/0.5 ML VIAL SQ SCH ×2 (08:08→20:53)
[2020-05-16] MEDS: predniSONE 20 MG TAB PO SCH (08:08)
[2020-05-16] MEDS: DOXYCYCLINE HYCLATE 100 MG in DEXTROSE 5% 100 ML IV SCH ×2 (09:51→20:53)
--- NOTE | 2020-05-16 11:43 | Cardiology Progress Note ---
Date of Service May 16, 2020 Assessment & Plan (1) SOB (shortness of breath): (2) Productive cough: (3) Pneumonitis: (4) COPD (chronic obstructive pulmonary disease): (5) History of CVA (cerebrovascular accident): (6) Calcific aortic stenosis: The patient remains comfortable and seems to be improving. I would continue current treatment. Admission and Anticipated Discharge Date Admission Date: May 12, 2020 Subjective The patient appears comfortable. No new cardiac complaints today. Review of Systems Review of Systems: Unobtainable due to cognitive status Physical Exam Physical Exam: General: no acute distress and stated age Head: normocephalic, no masses, lesions, tenderness or abnormalities Eyes: conjunctiva are pink and non-injected, sclera clear Neck: supple, no adenopathy, no bruits, normal jugular venous pulse, no hepatojugular reflux Chest: normal shape and normal respiratory effort Lungs: clear to auscultation and percussion Cardiac Exam: - regular rate & rhythm, systolic murmur left sternal border- normal S1, normal S2 Pulses: 2(+) throughout Abdomen: abdomen soft, non-tender, no abnormal masses and no hepatosplenomegaly Musculoskeletal: no gait disturbance, no joint inflammation, no deforming arthritis Extremities: no edema and no cyanosis Neuro: grossly normal exam Results & Data ([facility]) Vital Signs (Past 12 Hours) Vital Signs Temp Pulse Pulse Resp BP Pulse Ox Pulse Ox 05/16/20 11:17 36.6 C 77 18 96/60 L 94 05/16/20 11:04 64 95 05/16/20 07:39 36.6 C 75 18 111/70 100 05/16/20 07:35 69 18 99 05/16/20 06:20 62 05/16/20 03:35 36.4 C L 66 18 101/55 L 97 05/16/20 00:00 98 05/15/20 23:51 76 Medications Administered Current Inpatient Medications Acetaminophen (Acetaminophen 325 Mg Tab) 650 mg PO Q4H PRN PRN Reason: Pain or Fever Stop: 06/12/20 00:08 Albuterol (Albuterol Hfa 8 Gm Inhaler) 1 puffs INH QIDR [facility] Stop: 06/12/20 06:59 Last Admin: 05/16/20 11:03 Dose: 1 puffs Documented by: Betamethasone Dipropion Augmented (Betamethasone Dip Aug (Diprolene) 0.05% Cr 15 Gm Tube) 1 appln EXT MoWeFr@0900 PRN PRN Reason: Ear Itchiness Stop: 06/12/20 00:28 Heparin Sodium (Porcine) (Heparin Sod 5,000 Unit/0.5 Ml Vial) 5,000 units SQ Q12 [facility] Stop: 06/12/20 08:59 Last Admin: 05/16/20 08:08 Dose: 5,000 units Documented by: Ceftriaxone Sodium 1,000 mg/ (Dextrose) 60 mls @ 100 mls/hr IV Q24H [facility]; Protocol Stop: 05/18/20 20:35 Last Infusion: 05/15/20 21:44 Dose: Infused Documented by: Doxycycline Hyclate 100 mg/ (Dextrose) 110 mls @ 50 mls/hr IV Q12H [facility] Stop: 05/20/20 08:59 Last Admin: 05/16/20 09:51 Dose: 50 mls/hr Documented by: Ipratropium [place] (Ipratropium [place] Hfa Inhaler) 1 puffs INH QIDR [facility] Stop: 06/12/20 06:59 Last Admin: 05/16/20 11:02 Dose: 1 puffs Documented by: Ipratropium [place] (Ipratropium [place] Neb Soln 0.02% 2.5 Ml Vial) 0.5 mg INH Q4H PRN PRN Reason: Shortness Of Breath Or Wheezing Stop: 06/12/20 00:08 Levalbuterol HCl (Levalbuterol 1.25mg/0.5ml Neb) 1.25 mg INH Q4H PRN PRN Reason: Shortness Of Breath Or Wheezing Stop: 06/12/20 00:08 Lorazepam (Lorazepam 1 Mg Tab) 1 mg PO BID PRN PRN Reason: Anxiety Stop: 06/12/20 00:13 Last Admin: 05/15/20 01:24 Dose: 1 mg Documented by: Multivitamins/Minerals (Cerovite Adv Formula Tab) 1 tab PO QAM [facility] Stop: 06/12/20 08:59 Last Admin: 05/16/20 08:08 Dose: 1 tab Documented by: Nitroglycerin (Nitroglycerin Sl 0.4 Mg/Tab Tab) 0.4 mg SL UD PRN PRN Reason: Chest Pain Stop: 06/12/20 00:08 Ondansetron HCl (Ondansetron Inj 2 Mg/Ml 2 Ml Vial) 4 mg IV Q6H PRN PRN Reason: Nausea Stop: 06/12/20 00:08 Polyethylene Glycol (Polyethylene (Miralax) 17 Gm Pack) 17 gm PO DAILY PRN PRN Reason: Constipation Stop: 06/12/20 00:08 Prednisone (Prednisone 20 Mg Tab) 40 mg PO DAILY [facility] Stop: 06/12/20 08:59 Last Admin: 05/16/20 08:08 Dose: 40 mg Documented by: Tamsulosin HCl (Tamsulosin Hcl 0.4 Mg Cap) 0.4 mg PO HS [facility] Stop: 06/14/20 20:59 Last Admin: 05/15/20 20:19 Dose: 0.4 mg Documented by: Vitamin D (Cholecalciferol 1,000 Units 25 Mcg Tab) 2,000 units PO DAILY [facility] Stop: 06/12/20 08:59 Last Admin: 05/16/20 08:08 Dose: 2,000 units Documented by:
--- NOTE | 2020-05-16 16:25 | Hospitalist Progress Note ---
Date of Service May 16, 2020 Assessment & Plan (1) COPD exacerbation: Has history of COPD on 2 L of home oxygen has been getting increasing shortness of breath for the last few days Has infective COPD exacerbation We will continue with nebulized bronchodilators and intravenous Solu-Medrol Oxygen as needed Condition seems to be improving We will provide incentive spirometer Remains stable with gradual improvement Denies any shortness of breath and or wheezing Low blood pressure Likely secondary to mild dehydration Will try cautious amount of intravenous fluid Inability to pass urine Likely secondary to prostatic hypertrophy Required Aguirre catheter insertion Started on Flomax Will try to discontinue Aguirre tomorrow morning (2) Community acquired pneumonia: Chest x-ray showed bilateral lower lobe infiltration, pneumonitis/pneumonia Has been started on intravenous ceftriaxone and doxycycline Blood cultures have been sent-negative so far We will continue current antibiotics-no fever and/or chills and white count is coming down No fever and/or chills (3) Calcific aortic stenosis: Did not have any chest pain but has shortness of breath with minimal exertion Appreciate cardiology input and recommendation May need a small dose of Lasix but otherwise no change in his cardiac medication Echo of the heart showed: Severe calcific aortic stenosis, LV is normal in size with EF of 50 to 55%, RV systolic function is normal, both atria are normal No acute symptoms (4) History of CVA (cerebrovascular accident): Weak and lethargic but does not have any sequela (5) HTN (hypertension): Seems to be in the lower side of normal (6) Atrial fibrillation: EKG showed atrial fibrillation Likely secondary to COPD with hypoxemia and may be complicated by pneumonia Earlier EKG did not show any atrial fibrillation DVT prophylaxis Subcu heparin CODE STATUS Full We will get PT and OT evaluation Discussed with the son and the [id number] and will keep in touch with them Likely for short-term rehab when accepted Will go to rehab tomorrow Admission and Anticipated Discharge Date Admission Date: May 12, 2020 Subjective 05/13/2020 The patient was seen and examined in medical telemetry unit He was admitted with a shortness of breath with history of COPD Has been feeling a little better since admission Denies any fever and/or chills, any abdominal pain,nausea and/or vomiting, no chest pain and/or palpitation 05/14/2020 The patient was seen and examined in medical telemetry unit He has been feeling better but remains weak and lethargic Complains today of cough with productive phlegm but no hematemesis Denies any fever and/or chills 05/15/2020 The patient was seen and examined in medical telemetry unit He remains weak and lethargic but otherwise stable Denies any chest pain and/or palpitation Minimal shortness of breath at rest 05/16/2020 The patient was seen and examined in medical telemetry unit He has been feeling much better today but remains weak Denies any significant symptoms Review of Systems Review of Systems: All systems reviewed and are unremarkable except as noted below Respiratory: + cough and + dyspnea (Minimal dyspnea at rest); no wheezing Physical Exam Physical Exam: Sitting on a chair without any acute distress Constitutional: well developed, well nourished, + ill appearing and average body habitus; no acute distress Eyes: PERRL, conjunctivae normal, anicteric sclerae ENMT: external ear and nose normal, oropharynx normal Neck: trachea midline, no thyromegaly Respiratory: no respiratory distress Auscultation: + diminished lung sounds, + crackles (Minimal bibasilar crackles) and + wheezes (Minimal wheezing) Cardiovascular: Rate/Rhythm: + irregularly irregular Heart Sounds: + murmur (2/6 ESM over aortic area) Extremities: no edema Gastrointestinal (Abdomen): Inspection/Auscultation: normal bowel sounds; abdomen not distended Percussion/Palpation: abdomen soft; abdomen nontender Musculoskeletal: No acute arthritis in any joint Psychiatric: A+Ox3, euthymic affect Lymphatic: no cervical or axillary lymphadenopathy Results & Data Results & Data ([facility]) Vital Signs (Past 12 Hours) Vital Signs Temp Pulse Pulse Resp BP Pulse Ox 05/16/20 15:44 78 18 96 05/16/20 15:32 36.4 C L 77 18 86/50 L 95 05/16/20 15:20 66 05/16/20 11:17 36.6 C 77 18 96/60 L 94 05/16/20 11:04 64 95 05/16/20 07:39 36.6 C 75 18 111/70 100 05/16/20 07:35 69 18 99 05/16/20 06:20 62 Medications Administered Current Inpatient Medications Acetaminophen (Acetaminophen 325 Mg Tab) 650 mg PO Q4H PRN PRN Reason: Pain or Fever Stop: 06/12/20 00:08 Albuterol (Albuterol Hfa 8 Gm Inhaler) 1 puffs INH QIDR [facility] Stop: 06/12/20 06:59 Last Admin: 05/16/20 15:43 Dose: 1 puffs Documented by: Betamethasone Dipropion Augmented (Betamethasone Dip Aug (Diprolene) 0.05% Cr 15 Gm Tube) 1 appln EXT MoWeFr@0900 PRN PRN Reason: Ear Itchiness Stop: 06/12/20 00:28 Heparin Sodium (Porcine) (Heparin Sod 5,000 Unit/0.5 Ml Vial) 5,000 units SQ Q12 [facility] Stop: 06/12/20 08:59 Last Admin: 05/16/20 08:08 Dose: 5,000 units Documented by: Ceftriaxone Sodium 1,000 mg/ (Dextrose) 60 mls @ 100 mls/hr IV Q24H [facility]; Protocol Stop: 05/18/20 20:35 Last Infusion: 05/15/20 21:44 Dose: Infused Documented by: Doxycycline Hyclate 100 mg/ (Dextrose) 110 mls @ 50 mls/hr IV Q12H [facility] Stop: 05/20/20 08:59 Last Infusion: 05/16/20 12:03 Dose: Infused Documented by: Sodium Chloride (Nss 1000ml) 1,000 mls @ 80 mls/hr IV .[id number] [facility] Stop: 05/17/20 04:59 Ipratropium [place] (Ipratropium [place] Hfa Inhaler) 1 puffs INH QIDR [facility] Stop: 06/12/20 06:59 Last Admin: 05/16/20 15:43 Dose: 1 puffs Documented by: Ipratropium [place] (Ipratropium [place] Neb Soln 0.02% 2.5 Ml Vial) 0.5 mg INH Q4H PRN PRN Reason: Shortness Of Breath Or Wheezing Stop: 06/12/20 00:08 Levalbuterol HCl (Levalbuterol 1.25mg/0.5ml Neb) 1.25 mg INH Q4H PRN PRN Reason: Shortness Of Breath Or Wheezing Stop: 06/12/20 00:08 Lorazepam (Lorazepam 1 Mg Tab) 1 mg PO BID PRN PRN Reason: Anxiety Stop: 06/12/20 00:13 Last Admin: 05/15/20 01:24 Dose: 1 mg Documented by: Multivitamins/Minerals (Cerovite Adv Formula Tab) 1 tab PO QAM [facility] Stop: 06/12/20 08:59 Last Admin: 05/16/20 08:08 Dose: 1 tab Documented by: Nitroglycerin (Nitroglycerin Sl 0.4 Mg/Tab Tab) 0.4 mg SL UD PRN PRN Reason: Chest Pain Stop: 06/12/20 00:08 Ondansetron HCl (Ondansetron Inj 2 Mg/Ml 2 Ml Vial) 4 mg IV Q6H PRN PRN Reason: Nausea Stop: 06/12/20 00:08 Polyethylene Glycol (Polyethylene (Miralax) 17 Gm Pack) 17 gm PO DAILY PRN PRN Reason: Constipation Stop: 06/12/20 00:08 Prednisone (Prednisone 20 Mg Tab) 40 mg PO DAILY [facility] Stop: 06/12/20 08:59 Last Admin: 05/16/20 08:08 Dose: 40 mg Documented by: Tamsulosin HCl (Tamsulosin Hcl 0.4 Mg Cap) 0.4 mg PO HS [facility] Stop: 06/14/20 20:59 Last Admin: 05/15/20 20:19 Dose: 0.4 mg Documented by: Vitamin D (Cholecalciferol 1,000 Units 25 Mcg Tab) 2,000 units PO DAILY [facility] Stop: 06/12/20 08:59 Last Admin: 05/16/20 08:08 Dose: 2,000 units Documented by:
[2020-05-16] MEDS ORDERED: SODIUM CHLORIDE 0.9% 1000ML 1,000 ML IV SCH (16:30)
[2020-05-16] MEDS: cefTRIAXone SODIUM 1,000 MG in DEXTROSE 5% 50 ML IV SCH (19:44)
[2020-05-16] MEDS: TAMSULOSIN HCL 0.4 MG CAP PO SCH (20:53)
[2020-05-17 06:30] LABS: Hematocrit (blood only) 36.8 % (42-52); Hemoglobin 11.6 g/dL (14.0-18.0); Immature Granulocytes # (auto) 0.01 K/uL (0.00-0.02); Immature Granulocytes % (auto) 0.1 %; Lymphocytes % (auto) 11.7 %; Mean Corpuscular Hgb Conc 31.5 g/dL (32-36); Mean Corpuscular Volume 104.5 fL (80-100); Monocytes # (auto) 1.06 K/uL (0.11-0.59); Monocytes % (auto) 13.7 %; Neutrophils # (auto) 5.75 K/uL (1.4-6.5); Neutrophils % (auto) 74.5 %; Platelet Count 199 K/uL (130-400); RDW Coefficient of Variation 16.3 % (11.5-14.5); RDW Standard Deviation 61.4 fL (36.4-46.3); Red Blood Count 3.52 M/uL (4.7-6.1); White Blood Count 7.72 K/uL (4.8-10.8)
[2020-05-17 07:14] LABS: BUN Creatinine Ratio 36.1 (10-20); Calcium 8.2 mg/dl (8.5-10.1); Creatinine Clr Calc Pharmacy 55.8 ml/min; Est GFR (African American) 93.4; Est GFR (Non-African American) 80.6; Magnesium 2.2 mg/dl (1.8-2.4); Potassium 4.3 mmol/L (3.5-5.1)
[2020-05-17] MEDS: IPRATROPIUM BROMIDE HFA INHALER INH SCH ×2 (07:22→10:36)
[2020-05-17] MEDS: ALBUTEROL HFA 8 GM INHALER INH SCH ×2 (07:23→10:36)
[2020-05-17] MEDS: DOXYCYCLINE HYCLATE 100 MG in DEXTROSE 5% 100 ML IV SCH (07:57)
[2020-05-17] MEDS: predniSONE 20 MG TAB PO SCH (07:57)
[2020-05-17] MEDS: CHOLECALCIFEROL 1,000 UNITS 25 MCG TAB PO SCH (07:58)
[2020-05-17] MEDS: HEPARIN SOD 5,000 UNIT/0.5 ML VIAL SQ SCH (07:58)
[2020-05-17] MEDS: CEROVITE ADV FORMULA TAB PO SCH (07:58)
--- NOTE | 2020-05-17 11:37 | Hospitalist Progress Note ---
Date of Service May 17, 2020 Assessment & Plan (1) COPD exacerbation: Has history of COPD on 2 L of home oxygen has been getting increasing shortness of breath for the last few days Has infective COPD exacerbation We will continue with nebulized bronchodilators and intravenous Solu-Medrol Oxygen as needed We will provide incentive spirometer Remains stable with gradual improvement Has been feeling a lot better though has tiredness We will continue oxygen as before Low blood pressure Likely secondary to mild dehydration Will try cautious amount of intravenous fluid Blood pressure seems to be stable at lower side of systolic 100s Inability to pass urine Likely secondary to prostatic hypertrophy Required Aguirre catheter insertion Started on Flomax Will try to discontinue Aguirre tomorrow morning Aguirre catheter discontinued Has been making urine-May need to put urinary catheter if he develops obstruction (2) Community acquired pneumonia: Chest x-ray showed bilateral lower lobe infiltration, pneumonitis/pneumonia Has been started on intravenous ceftriaxone and doxycycline Blood cultures have been sent-negative so far We will continue current antibiotics-no fever and/or chills and white count is coming down No fever and/or chills Will change oral antibiotic and finish the course of 10 days in total (3) Calcific aortic stenosis: Did not have any chest pain but has shortness of breath with minimal exertion Appreciate cardiology input and recommendation May need a small dose of Lasix but otherwise no change in his cardiac medication Echo of the heart showed: Severe calcific aortic stenosis, LV is normal in size with EF of 50 to 55%, RV systolic function is normal, both atria are normal No acute symptoms (4) History of CVA (cerebrovascular accident): Weak and lethargic but does not have any sequela (5) HTN (hypertension): Seems to be in the lower side of normal (6) Atrial fibrillation: EKG showed atrial fibrillation Likely secondary to COPD with hypoxemia and may be complicated by pneumonia Earlier EKG did not show any atrial fibrillation Discussed with sr community manager-will not put him on any anticoagulation and continue with aspirin the way he has been taking DVT prophylaxis Subcu heparin CODE STATUS Full We will get PT and OT evaluation Discussed with the son and the [id number] and will keep in touch with them Likely for short-term rehab when accepted Will be discharged to [facility] this afternoon Admission and Anticipated Discharge Date Admission Date: May 12, 2020 Subjective 05/13/2020 The patient was seen and examined in medical telemetry unit He was admitted with a shortness of breath with history of COPD Has been feeling a little better since admission Denies any fever and/or chills, any abdominal pain,nausea and/or vomiting, no chest pain and/or palpitation 05/14/2020 The patient was seen and examined in medical telemetry unit He has been feeling better but remains weak and lethargic Complains today of cough with productive phlegm but no hematemesis Denies any fever and/or chills 05/15/2020 The patient was seen and examined in medical telemetry unit He remains weak and lethargic but otherwise stable Denies any chest pain and/or palpitation Minimal shortness of breath at rest 05/16/2020 The patient was seen and examined in medical telemetry unit He has been feeling much better today but remains weak Denies any significant symptoms 05/17/2020 The patient was seen and examined in medical telemetry unit He remains weak but otherwise denies any symptoms He was noted to have a few ectopic beats/atrial fibrillation on monitor Denies any chest pain and/or more shortness of breath at rest Will be transferred to [facility] at 1:00PM today Review of Systems Review of Systems: All systems reviewed and are unremarkable except as noted below Respiratory: + dyspnea (Minimal dyspnea at rest); no cough and no wheezing Physical Exam Physical Exam: Sitting on a chair without any acute distress Constitutional: well developed, well nourished, + ill appearing and average body habitus; no acute distress Eyes: PERRL, conjunctivae normal, anicteric sclerae ENMT: external ear and nose normal, oropharynx normal Neck: trachea midline, no thyromegaly Respiratory: no respiratory distress Auscultation: + diminished lung sounds, + crackles (Minimal bibasilar crackles) and + wheezes (Minimal wheezing) Cardiovascular: Rate/Rhythm: + irregularly irregular Heart Sounds: + murmur (2/6 ESM over aortic area) Extremities: no edema Gastrointestinal (Abdomen): Inspection/Auscultation: normal bowel sounds; abdomen not distended Percussion/Palpation: abdomen soft; abdomen nontender Musculoskeletal: No acute arthritis in any joint Neurologic: Alert, awake and oriented x3. Generally weak but no focal motor deficit Psychiatric: A+Ox3, euthymic affect Lymphatic: no cervical or axillary lymphadenopathy Results & Data Results & Data ([facility]) Vital Signs (Past 12 Hours) Vital Signs Temp Pulse Pulse Resp BP Pulse Ox 05/17/20 11:18 36.4 C L 74 18 109/64 96 05/17/20 10:38 87 18 94 05/17/20 08:00 65 05/17/20 07:36 36.5 C 79 18 115/69 95 05/17/20 07:24 72 18 94 05/17/20 04:01 96 H 05/17/20 04:00 36.5 C 72 18 112/64 95 Laboratory Results Short CBC 05/17/20 Range/Units 06:03 WBC 7.72 (4.8-10.8) K/uL Hgb 11.6 L (14.0-18.0) g/dL Hct 36.8 L (42-52) % Plt Count 199 (130-400) K/uL BMP 05/17/20 06:03 Sodium 142 Potassium 4.3 Chloride 103 Carbon Dioxide 40 H BUN 28 H Creatinine 0.78 Glucose 81 Calcium 8.2 L Medications Administered Current Inpatient Medications Acetaminophen (Acetaminophen 325 Mg Tab) 650 mg PO Q4H PRN PRN Reason: Pain or Fever Stop: 06/12/20 00:08 Albuterol (Albuterol Hfa 8 Gm Inhaler) 1 puffs INH QIDR [facility] Stop: 06/12/20 06:59 Last Admin: 05/17/20 10:36 Dose: 1 puffs Documented by: Betamethasone Dipropion Augmented (Betamethasone Dip Aug (Diprolene) 0.05% Cr 15 Gm Tube) 1 appln EXT MoWeFr@0900 PRN PRN Reason: Ear Itchiness Stop: 06/12/20 00:28 Heparin Sodium (Porcine) (Heparin Sod 5,000 Unit/0.5 Ml Vial) 5,000 units SQ Q12 [facility] Stop: 06/12/20 08:59 Last Admin: 05/17/20 07:58 Dose: 5,000 units Documented by: Ceftriaxone Sodium 1,000 mg/ (Dextrose) 60 mls @ 100 mls/hr IV Q24H [facility]; Protocol Stop: 05/18/20 20:35 Last Infusion: 05/16/20 20:30 Dose: Infused Documented by: Doxycycline Hyclate 100 mg/ (Dextrose) 110 mls @ 50 mls/hr IV Q12H [facility] Stop: 05/20/20 08:59 Last Infusion: 05/17/20 10:23 Dose: Infused Documented by: Ipratropium [place] (Ipratropium [place] Hfa Inhaler) 1 puffs INH QIDR [facility] Stop: 06/12/20 06:59 Last Admin: 05/17/20 10:36 Dose: 1 puffs Documented by: Ipratropium [place] (Ipratropium [place] Neb Soln 0.02% 2.5 Ml Vial) 0.5 mg INH Q4H PRN PRN Reason: Shortness Of Breath Or Wheezing Stop: 06/12/20 00:08 Levalbuterol HCl (Levalbuterol 1.25mg/0.5ml Neb) 1.25 mg INH Q4H PRN PRN Reason: Shortness Of Breath Or Wheezing Stop: 06/12/20 00:08 Lorazepam (Lorazepam 1 Mg Tab) 1 mg PO BID PRN PRN Reason: Anxiety Stop: 06/12/20 00:13 Last Admin: 05/15/20 01:24 Dose: 1 mg Documented by: Multivitamins/Minerals (Cerovite Adv Formula Tab) 1 tab PO QAM [facility] Stop: 06/12/20 08:59 Last Admin: 05/17/20 07:58 Dose: 1 tab Documented by: Nitroglycerin (Nitroglycerin Sl 0.4 Mg/Tab Tab) 0.4 mg SL UD PRN PRN Reason: Chest Pain Stop: 06/12/20 00:08 Ondansetron HCl (Ondansetron Inj 2 Mg/Ml 2 Ml Vial) 4 mg IV Q6H PRN PRN Reason: Nausea Stop: 06/12/20 00:08 Polyethylene Glycol (Polyethylene (Miralax) 17 Gm Pack) 17 gm PO DAILY PRN PRN Reason: Constipation Stop: 06/12/20 00:08 Prednisone (Prednisone 20 Mg Tab) 40 mg PO DAILY [facility] Stop: 06/12/20 08:59 Last Admin: 05/17/20 07:57 Dose: 40 mg Documented by: Tamsulosin HCl (Tamsulosin Hcl 0.4 Mg Cap) 0.4 mg PO HS [facility] Stop: 06/14/20 20:59 Last Admin: 05/16/20 20:53 Dose: 0.4 mg Documented by: Vitamin D (Cholecalciferol 1,000 Units 25 Mcg Tab) 2,000 units PO DAILY [facility] Stop: 06/12/20 08:59 Last Admin: 05/17/20 07:58 Dose: 2,000 units Documented by:
--- NOTE | 2020-05-17 12:31 | Cardiology Progress Note ---
Date of Service May 17, 2020 Assessment & Plan (1) Community acquired pneumonia: (2) COPD exacerbation: (3) Atrial fibrillation: (4) Calcific aortic stenosis: The patient is clinically stable. He is in a rate controlled A. fib and I do not believe that this should hold up his transfer to the rehab hospital. I think it is best that he goes there instead of staying in the hospital. We are not going to treat the atrial fibrillation any further as the rate is controlled and he is hemodynamically stable. I also do not believe that he is a candidate for long-term anticoagulation due to fall risk. Therefore, he is stable enough and should be transferred to the rehab hospital. Subjective Patient voices no new complaints. He is anxious to be discharged in the hospital and to go to rehab Review of Systems Review of Systems: All systems reviewed & are unremarkable except as noted in HPI & below Nothing additional to add Physical Exam Physical Exam: General: no acute distress and stated age Head: normocephalic, no masses, lesions, tenderness or abnormalities Eyes: conjunctiva are pink and non-injected, sclera clear Neck: supple, no adenopathy, no bruits, normal jugular venous pulse, no hepatojugular reflux Chest: normal shape and normal respiratory effort Lungs: clear to auscultation and percussion Cardiac Exam: - irregular rate & rhythm, no murmurs gallops or rubs - normal S1, normal S2 Pulses: 2(+) throughout Abdomen: abdomen soft, non-tender, no abnormal masses and no hepatosplenomegaly Musculoskeletal: no gait disturbance, no joint inflammation, no deforming arthritis Extremities: no edema and no cyanosis Neuro: grossly normal exam Results & Data ([facility]) Vital Signs (Past 12 Hours) Vital Signs Temp Pulse Pulse Pulse Resp BP BP 05/17/20 12:21 36.4 C L 64 74 18 109/64 104/60 05/17/20 11:18 36.4 C L 74 18 109/64 05/17/20 10:38 87 18 05/17/20 08:00 65 05/17/20 07:36 36.5 C 79 18 115/69 05/17/20 07:24 72 18 05/17/20 04:01 96 H 05/17/20 04:00 36.5 C 72 18 112/64 Pulse Ox 05/17/20 12:21 96 05/17/20 11:18 96 05/17/20 10:38 94 05/17/20 08:00 05/17/20 07:36 95 05/17/20 07:24 94 05/17/20 04:01 05/17/20 04:00 95 Laboratory Results Laboratory Results - last 24 hr 05/17/20 05/17/20 05/17/20 06:03 06:03 Unknown WBC 7.72 RBC 3.52 L Hgb 11.6 L Hct 36.8 L MCV 104.5 H MCH 33.0 MCHC 31.5 L RDW Std Deviation 61.4 H RDW Coeff of Jai 16.3 H Plt Count 199 MPV 12.0 H Immature Gran % (Auto) 0.1 Neut % (Auto) 74.5 Lymph % (Auto) 11.7 [place] % (Auto) 13.7 Eos % (Auto) 0.0 Baso % (Auto) 0.0 Neut # (Auto) 5.75 Lymph # (Auto) 0.90 L [place] # (Auto) 1.06 H Eos # (Auto) 0.00 Baso # (Auto) 0.00 Immature Gran # (Auto) 0.01 Sodium 142 Potassium 4.3 Chloride 103 Carbon Dioxide 40 H Anion Gap -1.0 L BUN 28 H Creatinine 0.78 Est Cr Clr Drug Dosing 55.8 Est GFR ( Amer) 93.4 Est GFR (Non-Af Amer) 80.6 BUN/Creatinine Ratio 36.1 H Glucose 81 Calcium 8.2 L Magnesium 2.2 SARS-CoV-2 Ag (Rapid) Negative Medications Administered Current Inpatient Medications Acetaminophen (Acetaminophen 325 Mg Tab) 650 mg PO Q4H PRN PRN Reason: Pain or Fever Stop: 06/12/20 00:08 Albuterol (Albuterol Hfa 8 Gm Inhaler) 1 puffs INH QIDR [facility] Stop: 06/12/20 06:59 Last Admin: 05/17/20 10:36 Dose: 1 puffs Documented by: Betamethasone Dipropion Augmented (Betamethasone Dip Aug (Diprolene) 0.05% Cr 15 Gm Tube) 1 appln EXT MoWeFr@0900 PRN PRN Reason: Ear Itchiness Stop: 06/12/20 00:28 Cefuroxime Axetil (Cefuroxime Axetil 250 Mg Tablet) 250 mg PO BID [facility] Stop: 05/24/20 20:59 Doxycycline Hyclate (Doxycycline Hyclate 100 Mg Cap) 100 mg PO BID [facility] Stop: 05/24/20 20:59 Heparin Sodium (Porcine) (Heparin Sod 5,000 Unit/0.5 Ml Vial) 5,000 units SQ Q1 2 [facility] Stop: 06/12/20 08:59 Last Admin: 05/17/20 07:58 Dose: 5,000 units Documented by: Ipratropium Bath (Ipratropium Bath Hfa Inhaler) 1 puffs INH QIDR [facility] Stop: 06/12/20 06:59 Last Admin: 05/17/20 10:36 Dose: 1 puffs Documented by: Ipratropium [place] (Ipratropium [place] Neb Soln 0.02% 2.5 Ml Vial) 0.5 mg INH Q4H PRN PRN Reason: Shortness Of Breath Or Wheezing Stop: 06/12/20 00:08 Levalbuterol HCl (Levalbuterol 1.25mg/0.5ml Neb) 1.25 mg INH Q4H PRN PRN Reason: Shortness Of Breath Or Wheezing Stop: 06/12/20 00:08 Lorazepam (Lorazepam 1 Mg Tab) 1 mg PO BID PRN PRN Reason: Anxiety Stop: 06/12/20 00:13 Last Admin: 05/15/20 01:24 Dose: 1 mg Documented by: Multivitamins/Minerals (Cerovite Adv Formula Tab) 1 tab PO QAM [facility] Stop: 06/12/20 08:59 Last Admin: 05/17/20 07:58 Dose: 1 tab Documented by: Nitroglycerin (Nitroglycerin Sl 0.4 Mg/Tab Tab) 0.4 mg SL UD PRN PRN Reason: Chest Pain Stop: 06/12/20 00:08 Ondansetron HCl (Ondansetron Inj 2 Mg/Ml 2 Ml Vial) 4 mg IV Q6H PRN PRN Reason: Nausea Stop: 06/12/20 00:08 Polyethylene Glycol (Polyethylene (Miralax) 17 Gm Pack) 17 gm PO DAILY PRN PRN Reason: Constipation Stop: 06/12/20 00:08 Prednisone (Prednisone 20 Mg Tab) 40 mg PO DAILY [facility] Stop: 06/12/20 08:59 Last Admin: 05/17/20 07:57 Dose: 40 mg Documented by: Tamsulosin HCl (Tamsulosin Hcl 0.4 Mg Cap) 0.4 mg PO HS [facility] Stop: 06/14/20 20:59 Last Admin: 05/16/20 20:53 Dose: 0.4 mg Documented by: Vitamin D (Cholecalciferol 1,000 Units 25 Mcg Tab) 2,000 units PO DAILY [facility] Stop: 06/12/20 08:59 Last Admin: 05/17/20 07:58 Dose: 2,000 units Documented by:
[2020-05-17] MEDS ORDERED: ASPIRIN 81 MG ECTAB PO SCH (13:00)
--- NOTE | 2020-05-17 15:58 | Discharge Summary ---
Date of Service May 17, 2020 Admission HPI Per Admitting Provider DICTATED BY: Yfian Palomo MD DATE OF ADMISSION: 05/12/2020 CHIEF COMPLAINT: Shortness of breath. HISTORY OF PRESENT ILLNESS: This is an 89-year-old male with past medical history significant for COPD, pulmonary cachexia due to COPD, chronic rhinitis, pulmonary nodules, history of CVA, nonrheumatic aortic valve stenosis, sensorineural hearing loss bilateral, history of vertigo, moderate depression. The patient lives alone, uses walker at home. Uses 2 liters oxygen most of the time. He says he still can drive and he gets a lady helping him 3 times a week. His son lives in [facility]. He has cough with his COPD, but last few days it is getting worse and is getting short of breath. He denies any fever or chills. His appetite is not that great. Because of his ongoing shortness of breath and cough, he came to the ER. Denies any fever, chills. Denies any headache, no blurred visions. Hard of hearing. He has runny nose. Denies any sore throat. No loss of sense of smell or taste. No nausea, no abdominal pain. He says he is constipated. Denies any blood in stool or black stools. Normal bladder movements. Currently, resting comfortably and saturating okay on 2 liters. Admission Exam Per Admitting Provider GENERAL: The patient is old and frail, not in acute distress. VITAL SIGNS: Temperature 36.3, pulse 63, respiratory rate 21, blood pressure 109/61, oxygen 100% on 2 liters. HEENT: Pupils equal, round, and reactive to light. Oral mucosa moist. NECK: No neck masses seen. CARDIOVASCULAR: S1, S2 heard. Regular rate and rhythm, no murmur, no gallop. RESPIRATORY SYSTEM: Normal AP diameter. No accessory muscle use. Mild bilateral rhonchi heard. No wheezing. ABDOMEN: Soft, bowel sounds were nontender. No distention. CENTRAL NERVOUS SYSTEM: Cranial nerves II-XII grossly intact. Nonfocal. EXTREMITIES: No edema, no erythema. Principal Diagnosis COPD exacerbation, chronic respiratory failure on oxygen, community-acquired pneumonia, calcific aortic stenosis, PAF Discharge Exam Constitutional well developed, well nourished, + ill appearing and average body habitus; no acute distress Eyes PERRL, conjunctivae normal, anicteric sclerae ENMT external ear and nose normal, oropharynx normal Neck trachea midline, no thyromegaly Respiratory no respiratory distress Auscultation: + diminished lung sounds, + crackles (Minimal bibasilar crackles) and + wheezes (Minimal wheezing) Cardiovascular Rate/Rhythm: + irregularly irregular Heart Sounds: + murmur (2/6 ESM over aortic area) Extremities: no edema Gastrointestinal (Abdomen) Inspection/Auscultation: normal bowel sounds; abdomen not distended Percussion/Palpation: abdomen soft; abdomen nontender Psychiatric A+Ox3, euthymic affect Lymphatic no cervical or axillary lymphadenopathy Discharge Data Allergies Allergy/AdvReac Type Severity Reaction Status Date / Time No Known Allergies Allergy Verified 05/05/20 15:02 Consultations 05/12/20 20:05 ED Decision to Admit Stat 05/13/20 00:09 Consult Case Management - Discharge Planning Routine 05/13/20 08:00 Consult Cardiology Routine Hospital Course (1) COPD exacerbation: Has chronic respiratory failure on home oxygen Has history of COPD on 2 L of home oxygen has been getting increasing shortness of breath for the last few days Has infective COPD exacerbation We will continue with nebulized bronchodilators and intravenous Solu-Medrol Oxygen as needed We will provide incentive spirometer Remains stable with gradual improvement Has been feeling a lot better though has tiredness We will continue oxygen as before Low blood pressure Likely secondary to mild dehydration Will try cautious amount of intravenous fluid Blood pressure seems to be stable at lower side of systolic 100s Inability to pass urine Likely secondary to prostatic hypertrophy Required Aguirre catheter insertion Started on Flomax Will try to discontinue Aguirre tomorrow morning Aguirre catheter discontinued Has been making urine-May need to put urinary catheter if he develops obstructi on (2) Community acquired pneumonia: Chest x-ray showed bilateral lower lobe infiltration, pneumonitis/pneumonia Has been started on intravenous ceftriaxone and doxycycline Blood cultures have been sent-negative so far We will continue current antibiotics-no fever and/or chills and white count is coming down No fever and/or chills Will change oral antibiotic and finish the course of 10 days in total (3) Calcific aortic stenosis: Did not have any chest pain but has shortness of breath with minimal exertion Appreciate cardiology input and recommendation May need a small dose of Lasix but otherwise no change in his cardiac medication Echo of the heart showed: Severe calcific aortic stenosis, LV is normal in size with EF of 50 to 55%, RV systolic function is normal, both atria are normal No acute symptoms (4) History of CVA (cerebrovascular accident): Weak and lethargic but does not have any sequela (5) HTN (hypertension): Seems to be in the lower side of normal (6) Atrial fibrillation: EKG showed atrial fibrillation Likely secondary to COPD with hypoxemia and may be complicated by pneumonia Earlier EKG did not show any atrial fibrillation Discussed with salvage worker-will not put him on any anticoagulation and continue with aspirin the way he has been taking DVT prophylaxis Subcu heparin CODE STATUS Full We will get PT and OT evaluation Discussed with the son and the [id number] and will keep in touch with them Likely for short-term rehab when accepted Will be discharged to [facility] this afternoon Total Time Total Time Spent Total Time Spent (In Minutes): 40 minutes Total Time Includes: Examination of the Patient, Discharge Planning, Medication Reconciliation and Communication With Other Providers Discharge Plan Discharge Items Patient Disposition: Transfer [facility] Reason For Visit: SOB Discharge Diagnosis: COPD exacerbation, chronic respiratory failure on oxygen, community-acquired pneumonia, calcific aortic stenosis, PAF Condition on Discharge: Fair Activity: Resume your previous activity Non-emergency contact: Primary Care Provider Call non-emergency contact if: you have any medication questions and your symptoms worsen Follow-up/Referrals: Jacek Freeman, [Primary Care Provider] - (Please make an appointment with your primary care physician within 1 week) Diet: Heart Healthy Addtl Attending Provider Instructions: Please take precaution to avoid fall Continue oxygen as needed Continue PT and OT Please finish the course of antibiotics Pending Studies at Discharge: No Stand-Alone Forms: [facility] Skilled Items Patient informed of condition?: Yes DNR: No Discharge Level of Care: Skilled Communicable Disease: No Discharge Prognosis: Stable Lines: None Urinary Catheter: No Medications and DC Order Prescriptions: New doxycycline hyclate 100 mg Capsule 100 mg PO BID 5 Days Qty: 10 RF: 0 cefuroxime axetil 250 mg Tablet 250 mg PO BID 5 Days Qty: 10 RF: 0 tamsulosin 0.4 mg Capsule 0.4 mg PO HS 30 Days Qty: 30 RF: 0 albuterol sulfate [Ventolin HFA] 90 mcg/actuation Hfa Aerosol Inhaler 1 puff inhalation QIDR 30 Days Qty: 1 RF: 0 levalbuterol HCl 1.25 mg/0.5 mL Solution For Nebulization 1.25 mg inhalation Q4H PRN (Reason: shortness of breath or wheezing) 30 Days Qty: 50 RF: 0 Atrovent HFA 17 mcg/actuation Hfa Aerosol Inhaler 1 puff inhalation QIDR 30 Days Qty: 1 RF: 0 prednisone 10 mg tablet 10 mg PO UD Qty: 18 RF: 0 Lactinex 1 million cell tablet,chewable 1 tab PO BID Qty: 30 RF: 0 aspirin 81 mg tablet,chewable 81 mg PO DAILY Qty: 30 RF: 0 Continued cholecalciferol (vitamin D3) 50 mcg (2,000 unit) tablet 2,000 units PO DAILY RF: 0 lorazepam 1 mg tablet 1 mg PO BID PRN (Reason: Anxiety) RF: 0 betamethasone, augmented 0.05 % lotion 1 applic topical 3XWK PRN (Reason: Ear Itchiness) RF: 0 vitamin A-vitamin C-vit E-min Tablet 1 tab PO QAM RF: 0 Discharge Orders: Discharge Order (Routine); Ordered 05/17/20 Ordered By: Shawn Trevizo Admission Data Admit Date/Time: 05/12/20 22:25 Attending Provider: Shawn Trevizo Admit Provider: Yifan Palomo Primary Care Provider: Jacek Freeman Other Providers: Yifan Palomo ; Darell Hines ; Panda Jain ; Sergio Tilley ; Ernst Rollins ; DayannaRico rivera ; Roberto Foster ; Regi Sandoval ; Erika Walker ; Rex Kerr ; Pauly Jenkins [facility] Other Interventions: Discharge Summary Assessment (RN) Last Done: 05/17/20 12:21
[2020-05-17] MEDS ORDERED: cefUROXime axetil 250 MG TABLET PO SCH (21:00)
[2020-05-17] MEDS ORDERED: DOXYCYCLINE HYCLATE 100 MG CAP PO SCH (21:00)
--- NOTE | 2020-05-18 06:33 | Electrocardiogram Report ---
Test Reason : Blood Pressure : / mmHG Vent. Rate : 079 BPM Atrial Rate : 087 BPM P-R Int : 000 ms QRS Dur : 088 ms QT Int : 370 ms P-R-T Axes : 000 043 -61 degrees QTc Int : 424 ms Poor data quality, interpretation may be adversely affected Possible Atrial fibrillation with premature ventricular or aberrantly conducted complexes Low voltage QRS T wave abnormality, consider inferior ischemia Abnormal ECG When compared with ECG of 13-MAY-2020 07:22, Atrial fibrillation has replaced Sinus rhythm Inverted T waves have replaced nonspecific T wave abnormality in Inferior leads Confirmed by Darshan Clarke ([id number]) on 05/18/2020 6:32:57 AM Referred By: Jacek Freeman Confirmed By:Darshan Clarke
== END 2020-05-17 13:28 | DRG 194 ==
LOC: ED 14:27 → 2N 22:25